=== PATIENT | male | born 1930 | race Caucasian/White ===

== ENCOUNTER 2017-01-28 07:25 | Inpatient (IN) | payer MEDICARE, OTHER ==
[~2017-01-28] VITALS: Ht 182.9 cm; Wt 62.2 kg
[2017-01-28] MEDS ORDERED: NS 500 ML IV ONE ×2 (08:00→11:45)
[2017-01-28] MEDS ORDERED: COLA100C5 PO (08:12)
[2017-01-28] MEDS ORDERED: MIRA33504 PO (08:12)
[2017-01-28] MEDS ORDERED: MIRA3350 PO (08:12)
[2017-01-28] MEDS ORDERED: TRAD5TAB PO (08:12)
[2017-01-28] MEDS ORDERED: BISA10SU4 PR (08:12)
[2017-01-28] MEDS ORDERED: MILKSUS5 PO (08:12)
[2017-01-28] MEDS ORDERED: LIPI20TA PO (08:12)
[2017-01-28] MEDS ORDERED: SYNT75TA PO (08:12)
[2017-01-28] MEDS ORDERED: FLEEENE4 PR (08:12)
[2017-01-28] MEDS ORDERED: LASI40TA PO (08:12)
[2017-01-28] MEDS ORDERED: NITR4TASL SL (08:12)
[2017-01-28] MEDS ORDERED: ZYLO300T4 PO (08:12)
[2017-01-28] MEDS ORDERED: ACID1CAP PO (08:13)
[2017-01-28] MEDS ORDERED: MIRT30TA3 PO (08:13)
[2017-01-28] MEDS ORDERED: CARV3.12 PO (08:13)
[2017-01-28] MEDS ORDERED: K-TA10TA2 PO (08:13)
[2017-01-28] MEDS ORDERED: VITA500T PO (08:13)
[2017-01-28] MEDS ORDERED: BUME1TAB26 PO (08:13)
[2017-01-28] MEDS ORDERED: BUSP10TA PO (08:13)
[2017-01-28] MEDS ORDERED: WARF4TAB51 PO (08:15)
[2017-01-28 08:27] LABS: INR 2.17
[2017-01-28 08:32] LABS: ALBUMIN 2.7 GM/DL (3.2-5.2); ALBUMIN/GLOBULIN RATIO 0.79 (1.00-1.93); ALKALINE PHOSPHATASE 82 U/L (45-117); ALT/SGPT 10 U/L (12-78); ANION GAP 5 MEQ/L (8-16); AST/SGOT 23 U/L (15-37); BILIRUBIN,DIRECT 0.4 MG/DL (0.0-0.2); BILIRUBIN,TOTAL 1.1 MG/DL (0.2-1.0); BLOOD UREA NITROGEN 30 MG/DL (7-18); CALCIUM LEVEL 8.4 MG/DL (8.8-10.2); CARBON DIOXIDE LEVEL 42 MEQ/L (21-32); CHLORIDE LEVEL 94 MEQ/L (98-107); CREATININE FOR GFR 1.06 MG/DL (0.70-1.30); GLOMERULAR FILTRATION RATE > 60.0 (>35); GLUCOSE, FASTING 115 MG/DL (83-110); POTASSIUM SERUM 3.4 MEQ/L (3.5-5.1); SODIUM LEVEL 141 MEQ/L (136-145); TOTAL PROTEIN 6.1 GM/DL (6.4-8.2)
[2017-01-28 08:35] LABS: ADD MORPHOLOGY? YES; BASO % 0.3 % (0.0-1.0); EOS # 0.2 K/mm3 (0.0-0.50); EOS % 2.9 % (0.0-3.0); LARGE UNSTAINED CELL # 0.2 K/mm3 (0.0-0.4); LARGE UNSTAINED CELL % 3.5 % (0.0-4.0); LYMPH # 0.5 K/mm3 (1.5-4.5); LYMPH % 4.4 % (24.0-44.0); MEAN CORPUSCULAR HEMOGLOBIN 30.9 pg (27.0-33.0); MEAN CORPUSCULAR HGB CONC 30.2 g/dl (32.0-36.5); MEAN CORPUSCULAR VOLUME 102.3 fl (80.0-96.0); MONO # 0.5 K/mm3 (0.0-0.8); MONO % 7.4 % (0.0-5.0); NEUTROPHILS # 5.3 K/mm3 (1.8-7.7); NEUTROPHILS % 81.5 % (36.0-66.0); PLATELET COUNT, AUTOMATED 183 k/mm3 (150-450); RED CELL DISTRIBUTION WIDTH 20.5 % (11.5-14.5); WHITE BLOOD COUNT 6.5 K/mm3 (4.0-10.0)
--- NOTE | 2017-01-28 08:49 | REP ---
CT Head without contrast HISTORY: Fall COMPARISON: 09/14/2016 Areas of decreased attenuation are present in the periventricular white matter. This represents small-vessel ischemic disease. There is no intraparenchymal hemorrhage, acute infarct, mass or midline shift. The ventricular system and cortical sulci are dilated consistent with mild volume loss. There is no extra cerebral collection. There is no fracture. The visualized sinuses are clear. IMPRESSION: 1. Small vessel ischemic disease. 2. Mild volume loss. Signed by Sonu Christian MD 01/28/2017 08:41 A
[2017-01-28] MEDS ORDERED: ISOVUE-370 76% 100ML VIAL (Q9967) As Ordered ONE (09:06)
--- NOTE | 2017-01-28 09:08 | REP ---
CT CERVICAL SPINE WITHOUT CONTRAST: HISTORY: Fall. There is no acute fracture. Disc bulges are present at the C2-3 through C4-5 levels. Disc bulges with associated osteophyte formation are present at the C5-6 and C6-7 levels. There is minimal narrowing of the spinal canal. Uncinate process and/or facet hypertrophy are present at the C2-3 through C7-T1 levels. These findings produce minimal to severe narrowing of the neural foramina. The C4-5 through C7-T1 intervertebral discs are decreased in height consistent with disc degeneration. There are 4 mm of anterior subluxation of C2 on 3 and 2 mm of anterior subluxation of C3 on 4 through C5 on 6. IMPRESSION: 1. There is no acute fracture. 2. There is cervical spondylosis at the C2-3 through C7-T1 levels. Signed by Sonu Christian MD 01/28/2017 09:26 A
--- NOTE | 2017-01-28 09:10 | ECGEPIP ---
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
[2017-01-28] MEDS ORDERED: TETANUS/DIPHTHERIA TOX ADSORB ADULT 0.5ML SYR/VIAL (90714) IM ONE (09:15)
--- NOTE | 2017-01-28 09:16 | REP ---
Portable chest x-ray: Single view. History: Trauma. Comparison study: January 23, 2017. Findings: The patient is status post median sternotomy and aortic valve replacement. A multi lead pacemaker is seen in the right heart via the left side. There is moderate to marked cardiomegaly unchanged. Pulmonary vascular markings are congested and indistinct. Interstitial markings are diffusely prominent suggesting diffuse interstitial edema and/or fibrosis. A similar pattern was observed previously. No evidence of pneumothorax seen. No acute skeletal fracture is observed. Impression: Moderate to marked cardiomegaly with pacemaker and aortic valve replacement. Vascular congestion and interstitial edema versus fibrosis pattern again noted. Signed by Trevon Cannon MD 01/28/2017 03:18 P
[2017-01-28 09:19] LABS: POIKILOCYTOSIS 1+
--- NOTE | 2017-01-28 10:12 | REP ---
CT ABDOMEN AND PELVIS WITH IV CONTRAST: TECHNIQUE: Axial contrast enhanced images from the lung bases to the pubic symphysis using 100 mL Isovue 370 intravenous contrast material with multiplanar reformations. Comparison CT [facility] 01/19/2017. In the visualized lung bases there is again an increase in interstitial markings with moderate bilateral pleural effusions. These findings are unchanged since the prior CT exam. There is a large hiatal hernia. Liver demonstrates no evidence of a mass. Spleen is unremarkable. Adrenal glands demonstrate nodular thickening which has remained stable since the prior CT of 08/27/2013. The pancreas is unremarkable. There is a cyst in each kidney. There is no hydronephrosis. There are arteriosclerotic calcifications of the abdominal aorta without aneurysm. I see no adenopathy. A few calcified mesenteric lymph nodes are seen in the right abdomen. No free air is seen. There is a tiny amount of perihepatic and perisplenic fluid and also a tiny amount of free fluid is seen in the pelvis. No bowel wall thickening is seen. There is scattered colonic diverticulosis without evidence of acute diverticulitis. There is a small umbilical hernia. This does contain a nonobstructed bowel loop. Acute intramuscular hematoma is seen in the right rectus muscle measuring 9.6 x 4.5 x 7.3 cm. Urinary bladder appears unremarkable. There are degenerative changes of the spine. IMPRESSION: Acute intramuscular hematoma right rectus muscle as discussed above. There are moderate bilateral pleural effusions with adjacent increased interstitial markings appearing similar to prior study at [facility] 01/19/2017. There is a tiny amount of free fluid in the abdomen and pelvis. No other acute finding. Signed by Segun Henao MD 01/28/2017 04:40 P
[2017-01-28] MEDS ORDERED: LIDOCAINE W/EPINEPHRINE 1% 20ML VIAL SC ONE (11:45)
[2017-01-28] MEDS ORDERED: PHYTONADIONE 10MG/ML INJECTION (J3430) SC ONE (15:45)
[2017-01-28] MEDS ORDERED: ENSULIQ9 PO (16:23)
[2017-01-28] MEDS ORDERED: MILKSUS PO (16:23)
[2017-01-28] MEDS ORDERED: POTA20TA PO (16:23)
[2017-01-28] MEDS ORDERED: NS 1,000 ML IV SCH (19:42)
[2017-01-28] MEDS ORDERED: GLUCAGON FOR INJ 1 MG VIAL (J1610) SC PRN (19:45)
[2017-01-28] MEDS ORDERED: ONDANSETRON 4MG/2ML VIAL (J2405) IV PRN (19:45)
[2017-01-28] MEDS ORDERED: DEXTROSE 50% 50 ML SYRINGE IV PRN (19:45)
[2017-01-28] MEDS ORDERED: GLUCOSE 4 GM CHEW TABLET PO PRN (19:45)
[2017-01-28] MEDS ORDERED: POTASSIUM CHLORIDE 10 MEQ SR TABLET PO ONE (19:45)
[2017-01-28] MEDS ORDERED: BISACODYL 10 MG SUPP PR PRN (19:45)
[2017-01-28] MEDS ORDERED: ONDANSETRON 4 MG TAB (S0181) PO PRN (19:45)
[2017-01-28] MEDS ORDERED: MOM 30ML SUSPENSION UDC PO PRN (19:45)
--- NOTE | 2017-01-28 20:27 | CR ---
DATE OF CONSULTATION: 01/28/2017 REASON FOR CONSULTATION: Scalp bleeding and abdominal hematoma. HISTORY OF PRESENT ILLNESS: The patient is an 86-year-old male who fell off his bed and caused trauma to his scalp and his abdomen. Is here for increasing hematoma and active bleeding from a scalp laceration. Also had a skin laceration on his arm/abrasion that was treated here by the emergency room (ER) physicians. The patient has had some continued bleeding from his scalp laceration, and I was asked to see him for additional recommendations/treatment for this. The patient did not have any loss of consciousness at the scene. Does not complain of any shortness of breath. The patient is status post coronary artery bypass grafting, status post automatic implantable cardioverter-defibrillator (AICD) implantation, history of valve replacement, history of cardiac ablation, history of tonsillectomy, history of cardiac surgery, history of skin cancer, history of congestive heart failure, history of pacemaker placement, history of heart attack, history of hypercholesterolemia, history of hypertension, history of atrial fibrillation, history of chronic obstructive pulmonary disease (COPD)/pulmonary embolism, history of gastroesophageal (GE) reflux, history of diabetes mellitus, history of osteoarthritis, history of prostate cancer. NEW MEDICATIONS: Include the following: Bisacodyl suppository for constipation, Fleet's enema as needed, Colace, nitroglycerin, allopurinol, Tradjenta, Lipitor, Lasix, MiraLax, Synthroid, buspirone. Acidophilus, mirtazapine, carvedilol, vitamin C, Bumex, Coumadin, milk of magnesia, potassium chloride, and Ensure liquids. PHYSICAL EXAMINATION: Reveals a frail-appearing 86-year-old who looks stated age. HEENT: Reveals a laceration on his right scalp with some of the skin avulsed, and there is some active bleeding from a medial edge/frontal edge of this. Otherwise, no other lacerations are appreciated on his scalp. LUNGS: Clear anteriorly with few crackles posteriorly but diminished at the bases bilaterally, right more than left. HEART: Reveals multiple irregular beats. ABDOMEN: Softly distended. He has some tenderness at the area of the rectus hematoma appreciated on the CT scan, and he has hematoma/ecchymosis all across his abdominal wall. EXTREMITIES: Warm, well perfused. He has a bandage over his right arm abrasion/laceration. IMPRESSION AND PLAN: 1. Scalp laceration. This one I have put additional interrupted nylon sutures to control the bleeding, which controlled it quite well. Unfortunately, this does not look like a laceration/abrasion that will heal very well. There is a great deal of skin missing, and I would not be surprised if after taking out his sutures if we have some difficulties with healing and will require some healing by secondary intention, dressing changes, etc. At this point will keep antibiotic ointment on it and a dry sterile gauze and will see how he does overnight and into the next day. He has some ecchymosis along his face that I anticipate will resolve as his hematomas resolve elsewhere. 2. Anticoagulation. I would recommend reversal of his anticoagulation given this rectus muscle hematoma as well as this laceration on his scalp. Hopefully, restarting this will occur in the next 24-48 hours. 3. Rectus muscle hematoma. Seems well delineated on the CT scan and on his physical exam; however, he has ecchymosis all across his abdominal wall. Do not feel that he has active ongoing bleeding at this time. I would anticipate that he be a lot more uncomfortable/tender in this area and does not seem to be that way at this point. Thus, following serial hematocrits is reasonable per medicine, and reversing his anticoagulation at this time should most likely resolve his ongoing bleeding issues. Otherwise he has some pleural effusions appreciated on his CT scan with his history of congestive heart failure, cardiac issues. I would think that these would be more likely not acute issues, i.e., not a hemothorax given he has nontender chest wall and no acute shortness of breath issues. Will continue to follow this patient with you.
[2017-01-28] MEDS: FUROSEMIDE 40 MG TAB PO SCH (20:28)
[2017-01-28] MEDS: ACETAMINOPHEN TAB 650MG DOSE (2X325MG) PO PRN (20:29)
--- NOTE | 2017-01-28 20:29 | HPEPDOC ---
Medical History and Physical Date of Admission Jan 28, 2017 at 19:42 History and Physical HISTORY AND PHYSICAL Date of admission: 01/28/2017 PCP: Dr. Dong Chief complaint: Fell out of bed and started bleeding HPI: 86-year-old male with coronary artery disease and history of TX status post CABG, A. fib status post ablation, status post placement of AICD, hypertension, hyperlipidemia, chronic systolic CHF on continuous home O2, COPD, history of PE, GERD, history of prostate cancer status post radiation now in remission, history of arthritis, history of diabetes mellitus type 2, history of hypothyroidism, history of aortic valve replacement who [facility] He resides at [facility], and states that when he got out of bed this morning, he literally got out on the side of the bed that he does not usually get out. He states that he was confused when he used the other side of the bed, and consequently fell and hit his head. He denies any chest pain, dizziness, shortness of breath, or other symptoms prior to this happening. He also denies any loss of consciousness, and states that he remembers everything. He notes that he was unable to reach his call button, so instead he called out for the staff. In the emergency department , he was noticed to have a right for head laceration, which was closed by Dr. Pineda, and he also was noted to have an intramuscular hematoma in the right rectus. The patient endorses that he falls quite frequently, and his last one was approximately one month ago. He states that he never has any sort of symptoms prior to his falls. Past medical history: coronary artery disease and history of TX status post CABG , A. fib status post ablation, status post placement of AICD, hypertension, hyperlipidemia, chronic systolic CHF on continuous home O2, COPD, history of PE , GERD, history of prostate cancer status post radiation now in remission, arthritis, diabetes mellitus type 2, hypothyroidism, history of aortic valve replacement Past surgical history: CABG, tonsillectomy, appendectomy, cataract surgery, cardiac ablation, skin cancer excision, aortic valve replacement, AICD implantation Family history: Noncontributory Social history: The patient resides at [facility]. He is . He quit smoking cigarettes in 1985. He drinks approximately one sixpack per week in the summer, but states that in the winter, he does not drink at all. He denies any drug use. Allergies: Aspirin Review of systems: General: Negative for fever, positive for chills Eyes: Negative for vision changes and ocular discharge ENT: Negative for sore throat and nose bleed Cardiovascular: Negative for chest pain and palpitations Respiratory: Negative for cough and shortness of breath GI: Negative for nausea, vomiting. Positive for intermittent diarrhea and constipation Musculoskeletal: Negative for neck and back pain Skin: Positive for for head laceration, as well as bruising over his right eye and abdomen and scrotum Neuro: Negative for headache, dizziness, numbness, tingling Psych: Negative for depression and suicidal ideation Endocrine: Negative for polyuria : Negative for dysuria Heme: Positive for bleeding from the laceration on his head, and bruising over his right eye and abdomen Home meds: See below Physical exam: Vital signs: Vital Sign - Last 24 Hours 01/28/17 01/28/17 01/28/17 01/28/17 07:27 07:40 08:10 08:25 Temp 97.0 Pulse 61 64 60 Resp 16 B/P (MAP) 115/57 (76) 115/57 (76) Pulse Ox 97 97 100 O2 Delivery Nasal Cannula O2 Flow Rate 2.0 01/28/17 01/28/17 01/28/17 01/28/17 08:40 08:41 08:55 08:56 Pulse 64 66 B/P (MAP) 128/60 (82) 133/64 (87) Pulse Ox 93 97 01/28/17 01/28/17 01/28/17 01/28/17 09:10 09:11 09:25 09:26 Pulse 62 66 B/P (MAP) 118/56 (76) 112/63 (79) Pulse Ox 94 96 01/28/17 01/28/17 01/28/17 01/28/17 09:40 09:41 09:55 09:56 Pulse 68 66 B/P (MAP) 127/61 (83) 110/82 (91) Pulse Ox 97 82 01/28/17 01/28/17 01/28/17 01/28/17 10:10 10:11 10:25 10:26 Pulse 62 66 B/P (MAP) 124/85 (98) 144/58 (86) Pulse Ox 80 98 8/01/28/17 01/28/17 01/28/17 10:40 10:41 10:45 10:55 Pulse 64 68 B/P (MAP) 137/64 (88) Pulse Ox 100 100 01/28/17 01/28/17 01/28/17 01/28/17 10:56 11:11 11:26 11:41 Pulse 66 68 64 B/P (MAP) 142/64 (90) 132/63 (86) 105/57 (73) 114/53 (73) Pulse Ox 99 99 100 01/28/17 01/28/17 01/28/17 01/28/17 11:56 12:11 12:26 12:41 Pulse 66 64 68 64 B/P (MAP) 152/67 (95) 112/54 (73) 137/62 (87) 140/63 (88) Pulse Ox 100 96 98 100 01/28/17 01/28/17 01/28/17 01/28/17 12:56 13:11 13:26 13:41 Pulse 66 68 64 64 B/P (MAP) 110/60 (77) 129/61 (83) 118/61 (80) 113/57 (75) Pulse Ox 100 100 100 99 01/28/17 01/28/17 01/28/17 01/28/17 13:56 14:11 14:26 14:41 Pulse 66 62 70 66 B/P (MAP) 120/62 (81) 124/60 (81) 111/55 (73) 123/58 (79) Pulse Ox 99 100 100 99 01/28/17 01/28/17 01/28/17 01/28/17 14:56 15:11 15:26 15:41 Pulse 68 68 70 68 B/P (MAP) 132/66 (88) 107/50 (69) 112/52 (72) 90/54 (66) Pulse Ox 93 99 96 96 01/28/17 01/28/17 01/28/17 01/28/17 15:56 16:11 16:26 16:41 Pulse 66 68 68 62 B/P (MAP) 85/47 (60) 101/52 (68) 115/59 (77) Pulse Ox 92 75 97 100 01/28/17 01/28/17 01/28/17 01/28/17 16:56 17:11 17:26 17:41 Pulse 64 60 62 62 B/P (MAP) 118/56 (76) 146/63 (90) 116/58 (77) 103/53 (70) Pulse Ox 93 99 94 100 01/28/17 01/28/17 01/28/17 01/28/17 17:56 17:59 18:14 18:26 Pulse 68 64 B/P (MAP) 113/56 (75) 123/56 (78) 112/55 (74) Pulse Ox 100 95 01/28/17 01/28/17 01/28/17 01/28/17 18:29 18:41 18:44 18:46 Pulse 62 68 B/P (MAP) 108/58 (75) 112/55 (74) Pulse Ox 93 92 01/28/17 01/28/17 01/28/17 01/28/17 18:56 18:59 19:01 19:11 Pulse 64 B/P (MAP) 137/64 (88) 97/63 (74) 138/62 (87) Pulse Ox 100 01/28/17 01/28/17 01/28/17 01/28/17 19:14 19:26 19:29 19:41 Pulse 64 52 B/P (MAP) 129/60 (83) 118/70 (86) Pulse Ox 100 01/28/17 01/28/17 01/28/17 01/28/17 19:44 19:49 19:56 19:59 Pulse 60 62 B/P (MAP) 110/55 (73) 120/59 (79) Pulse Ox 100 100 01/28/17 01/28/17 01/28/17 20:07 20:11 20:14 Pulse 64 B/P (MAP) 92/51 (65) 99/58 (72) Pulse Ox 100 Gen.: awake, alert, no acute distress Eyes: Extraocular movements intact, normal sclera ENT: Moist mucous membranes Head: Right forehead laceration covered in bandage with oozing dripping down right cheek; large bruise over right eye Cardiovascular: RRR Lungs: clear to auscultation bilaterally, no rales, rhonchi, or wheeze Abdomen: Soft, NT/ND, normal BS; bruising over lower abd and scrotum Musculoskeletal: normal range of motion Extremities: No peripheral edema Neuro: alert and oriented 3, normal speech, no focal deficits Psych: Normal mood with congruent affect Labs and radiology: See below Potassium 3.4 Hemoglobin 8.6 INR 2.17 EKG shows a paced rhythm CT of the abdomen and pelvis shows an intramuscular hematoma in the right rectus CT head and CT of the C-spine have no acute findings Chest x-ray shows cardiomegaly and concern for congestion and possible edema Assessment and plan: 86-year-old male with coronary artery disease and history of TX status post CABG , A. fib status post ablation, status post placement of AICD, hypertension, hyperlipidemia, chronic systolic CHF on continuous home O2, COPD, history of PE , GERD, history of prostate cancer status post radiation now in remission, history of arthritis, history of diabetes mellitus type 2, history of hypothyroidism, history of aortic valve replacement who presented to the emergency department after falling out of bed, and is admitted with a head laceration and rectus hematoma. 1. Head laceration: This has been closed by Dr. Pineda. We appreciate his help with managing this. 2. Rectus hematoma: Management as per Dr. Pineda 3. Acute blood loss anemia: The patient has had stable blood pressures, and we are unsure what his previous hemoglobin was, however hemoglobin at [place] one week ago was 10, and upon arrival here was 8.6. The patient was on Coumadin with an INR of 2.17. In the ER, he was given a dose of vitamin K, and started on a blood transfusion of 2 units PRBCs. We will also plan to give him a pheresis of FFP, especially as he continues to ooze from his wound. We will monitor his H&H closely, and transfuse as necessary. 4. Chronic anticoagulation: At this time, it is unclear which indication is being used for the patient's anticoagulation. He does have a variety of things that could potentially warrant it. He endorses a history of a pulmonary embolism , but he states this was many years ago. He also has a history of A. fib, and additionally he has had his aortic valve replaced. He is unsure what type of valve he has, and the records that I received from his jail do not specify this. We will check an echo to evaluate if this is a mechanical or bioprosthetic valve. In the meantime, given the patient's head injury and hematoma in the rectus muscle, his anticoagulation has been reversed. Hopefully after determining what sort of valve he has, we can better form a plan going forward for his anticoagulation. I have discussed this case with Dr. Martin, and he agrees that in the setting of the patient still having active bleeding (the patient is still oozing from his head lack) we cannot have him on anticoagulation at this time. However, Dr. Martin suggests that if the patient has stopped bleeding in the morning, we could consider doing IV heparin until we can get the results of the echo to help determine what sort of valve he has. 5. Fall: It is difficult to assess if this was mechanical or not. The patient seems to deny any prior symptoms or aura. He did not lose consciousness. We will be monitoring him on telemetry, and a CT of the head is unremarkable. Additionally, we will be getting an echo, as we do not know what type of valve he has, and we'll continue to trend his troponins. We will also check a CK to evaluate if he has any component of rhabdomyolysis, and we'll start him on very gentle IV fluids given his history of CHF. 6. Hypokalemia: Replacing. 7. Coronary artery disease and history of TX status post CABG, hyperlipidemia: Continue home statin, beta kelly. The patient has a history of allergy to aspirin, which is why he is not on aspirin. 8. A. fib status post ablation, status post placement of AICD: The patient is currently paced and rate controlled. We'll continue him on the beta kelly. We are holding his Coumadin in light of his bleeding. 9. Hypertension: The patient's blood pressure has been quite stable despite his bleeding. We will continue his Coreg. 10. Chronic systolic CHF on continuous home O2 and the patient is currently on his home oxygen. Given that his blood pressure has remained stable despite his bleeding, and given that a chest x-ray shows concern for congestion and edema, we will plan to restart the patient on his home oral Lasix and Bumex in the morning. If his blood pressure should drop overnight, we can reassess that decision in the morning time. At this time, the patient is breathing comfortably , and I suspect that the edema we are seeing on the chest x-ray may be chronic in nature. 11. Diabetes mellitus type 2: Currently holding home Tradjenta. Sliding scale insulin while in-house. 12. Hypothyroidism: Continue home Synthroid. 13. History of aortic valve replacement: Please see above, chronic anticoagulation. DVT prophylaxis: SCDs Dispo: admit as an inpatient to the service of Dr. Feliciano CODE STATUS: DNR/DNI as per the MOLST form and confirmed with the patient Of note, at the patient's request I called and spoke to his daughter Bethanie Humphrey, and answered all of her questions regarding her father's condition. Vital Signs Vital Signs Date Time Temp Pulse Resp B/P (MAP) Pulse Ox O2 Delivery O2 Flow Rate FiO2 01/28/17 20:14 64 100 01/28/17 20:11 99/58 (72) 01/28/17 07:27 97.0 16 Nasal Cannula 2.0 Laboratory Data Labs 24H Laboratory Tests 2 01/28/17 07:55: Lactic Acid Level 1.1 01/28/17 07:56: White Blood Count 6.5, Red Blood Count 2.78L, Hemoglobin 8.6L, Hematocrit 28.4L , Mean Corpuscular Volume 102.3H, Mean Corpuscular Hemoglobin 30.9, Mean Corpuscular Hemoglobin Concent 30.2L, Red Cell Distribution Width 20.5H, Platelet Count 183, Neutrophils (%) (Auto) 81.5H, Lymphocytes (%) (Auto) 4.4L, Monocytes (%) (Auto) 7.4H, Eosinophils (%) (Auto) 2.9, Basophils (%) (Auto) 0.3 , Neutrophils # (Auto) 5.3, Lymphocytes # (Auto) 0.5L, Monocytes # (Auto) 0.5, Eosinophils # (Auto) 0.2, Basophils # (Auto) 0.0, Large Unclassified Cells % 3.5 , Large Unclassified Cells # 0.2, Platelet Estimate NORMAL, Poikilocytosis 1+, Macrocytosis 2+, Prothrombin Time 25.0H, Prothromb Time International Ratio 2.17 , Activated Partial Thromboplast Time 64.2H, Anion Gap 5L, Glomerular Filtration Rate > 60.0, Calcium Level 8.4L, Aspartate Amino Transf (AST/SGOT) 23 , Alanine Aminotransferase (ALT/SGPT) 10L, Alkaline Phosphatase 82, Total Bilirubin 1.1H, Direct Bilirubin 0.4H, Total Protein 6.1L, Albumin 2.7L, Albumin /Globulin Ratio 0.79L, Lipase 712H CBC/BMP Laboratory Tests 01/28/17 07:56 Red Blood Count 2.78 L, Mean Corpuscular Volume 102.3 H, Mean Corpuscular Hemoglobin 30.9, Mean Corpuscular Hemoglobin Concent 30.2 L, Red Cell Distribution Width 20.5 H, Neutrophils (%) (Auto) 81.5 H, Lymphocytes (%) (Auto ) 4.4 L, Monocytes (%) (Auto) 7.4 H, Eosinophils (%) (Auto) 2.9, Basophils (%) ( Auto) 0.3, Neutrophils # (Auto) 5.3, Lymphocytes # (Auto) 0.5 L, Monocytes # ( Auto) 0.5, Eosinophils # (Auto) 0.2, Basophils # (Auto) 0.0 Home Medications Scheduled (Acidophilus) 1 Cap Cap, 2 CAP PO DAILY (Bumex) 0.5 Mg Tab, 0.5 MG PO DAILY (Ensure Plus) 1 Liq Liq, 1 LIQ PO BID Allopurinol (Zyloprim) 300 Mg Tab, 300 MG PO DAILY Ascorbic Acid (Vitamin C) 500 Mg Tab, 500 MG PO BID Atorvastatin Calcium (Lipitor) 20 Mg Tab, 20 MG PO QHS Buspirone HCl (Buspirone HCl) 10 Mg Tab, 20 MG PO TID Carvedilol (Carvedilol) 3.125 Mg Tab, 3.125 MG PO BID Docusate Sodium (Colace) 100 Mg Cap, 100 MG PO DAILY Furosemide (Lasix) 40 Mg Tab, 120 MG PO BID Levothyroxine Sodium (Synthroid) 75 Mcg Tab, 75 MCG PO DAILY Linagliptin Base (Tradjenta) 5 Mg Tab, 5 MG PO DAILY Mirtazapine (Mirtazapine) 30 Mg Tab, 30 MG PO QHS Polyethylene Glycol (Miralax) 1 Pow Pow, 17 GM PO DAILY Potassium Chloride (Klor-Con M20) 20 Meq Tabcr, 20 MEQ PO TID Warfarin Sod (Warfarin Sodium) 2 Mg Tab, 2 MG PO DAILY FOR A 1 TIME DOSE Scheduled PRN Bisacodyl (Bisacodyl) 10 Mg Sup, 10 MG SD DAILY PRN for CONSTIPATION Milk Of Magnesia (Milk of Magnesia) 1,200 Mg/15 Ml [place], 30 ML PO QPM PRN for CONSTIPATION Nitroglycerin (Nitrostat) 0.4 Mg Subl, 0.4 MG SL Q5MP PRN for CHEST PAIN Sodium Phosphate/Biphosphate (Fleet Enema 7-19 gm/118Ml) 1 Peggy Peggy, 1 EA SD DAILY PRN for CONSTIPATION Allergies Coded Allergies: Aspirin (Verified Adverse Reaction, Intermediate, Blood shot eyes/blurry vision, 01/28/17) RK WHITING Jan 28, 2017 20:29
[2017-01-28] MEDS: HumaLOG INSULIN (NovoLOG) PER UNIT SC SCH ×2 (21:00→22:24)
[2017-01-28 21:05] VITALS: BP 122/60
[2017-01-28] MEDS: NS 1,000 ML IV SCH (21:52)
[2017-01-28] MEDS: ASCORBIC ACID 500 MG TAB PO SCH (21:53)
[2017-01-28] MEDS: CARVedilol 3.125 MG TAB PO SCH (21:53)
[2017-01-28] MEDS: MIRTAZAPINE 15 MG TAB PO SCH (21:53)
[2017-01-28] MEDS: ATORVASTATIN 20 MG TAB PO SCH (21:53)
[2017-01-28] MEDS: busPIRone 10 MG TAB PO SCH (21:54)
[2017-01-29] VITALS (10 sets, daily range): BP systolic 108–132; BP diastolic 59–76
[2017-01-29 05:43] LABS: BASO % 0.2 % (0.0-1.0); EOS # 0.1 K/mm3 (0.0-0.50); EOS % 1.7 % (0.0-3.0); LARGE UNSTAINED CELL # 0.2 K/mm3 (0.0-0.4); LARGE UNSTAINED CELL % 2.4 % (0.0-4.0); LYMPH # 0.3 K/mm3 (1.5-4.5); LYMPH % 3.4 % (24.0-44.0); MEAN CORPUSCULAR HEMOGLOBIN 30.9 pg (27.0-33.0); MEAN CORPUSCULAR HGB CONC 31.6 g/dl (32.0-36.5); MEAN CORPUSCULAR VOLUME 97.7 fl (80.0-96.0); MONO # 0.5 K/mm3 (0.0-0.8); MONO % 6.1 % (0.0-5.0); NEUTROPHILS # 6.9 K/mm3 (1.8-7.7); NEUTROPHILS % 86.2 % (36.0-66.0); PLATELET COUNT, AUTOMATED 158 k/mm3 (150-450); RED CELL DISTRIBUTION WIDTH 19.3 % (11.5-14.5)
[2017-01-29 05:44] LABS: INR 1.65
[2017-01-29 06:00] LABS: ANION GAP 6 MEQ/L (8-16); BLOOD UREA NITROGEN 24 MG/DL (7-18); CALCIUM LEVEL 7.9 MG/DL (8.8-10.2); CARBON DIOXIDE LEVEL 37 MEQ/L (21-32); CHLORIDE LEVEL 97 MEQ/L (98-107); CREATININE FOR GFR 1.02 MG/DL (0.70-1.30); GLOMERULAR FILTRATION RATE > 60.0 (>35); GLUCOSE, FASTING 161 MG/DL (83-110); MAGNESIUM LEVEL 2.2 MG/DL (1.8-2.4); SODIUM LEVEL 140 MEQ/L (136-145)
[2017-01-29] MEDS: LEVOTHYROXINE 75MCG TABLET (0.075MG) PO SCH (06:00)
[2017-01-29] MEDS ORDERED: POTASSIUM CHLORIDE 10 MEQ SR TABLET PO ONE (07:00)
[2017-01-29] MEDS: ACETAMINOPHEN TAB 650MG DOSE (2X325MG) PO PRN (07:04)
[2017-01-29] MEDS: DOCUSATE SODIUM 100 MG CAP PO SCH (07:40)
[2017-01-29] MEDS: BUMETANIDE 1 MG TAB PO SCH (07:42)
[2017-01-29] MEDS: ASCORBIC ACID 500 MG TAB PO SCH ×2 (07:42→21:51)
[2017-01-29] MEDS: CARVedilol 3.125 MG TAB PO SCH ×2 (07:42→21:51)
[2017-01-29] MEDS: ALLOPURINOL 300 MG TAB PO SCH (07:42)
[2017-01-29] MEDS: busPIRone 10 MG TAB PO SCH ×3 (07:43→21:51)
[2017-01-29] MEDS: FUROSEMIDE 40 MG TAB PO SCH ×2 (07:43→16:24)
[2017-01-29] MEDS: MIRALAX *UNIT DOSE* 17GM PACKET PO SCH (07:43)
[2017-01-29] MEDS: HumaLOG INSULIN (NovoLOG) PER UNIT SC SCH ×3 (07:44→17:30)
[2017-01-29] MEDS: PERCOCET 5MG/325MG TAB PO PRN ×2 (10:53→16:25)
[2017-01-29] MEDS: NS 1,000 ML IV SCH (12:30)
--- NOTE | 2017-01-29 20:38 | IPN ---
DATE: 01/28/2017 The patient seen and examined at the bedside. Chart has been reviewed. The patient has not had any issues on telemetry. Remains atrial fibrillation, irregularly irregular. Ventricular rate of 52 to 62, asymptomatic. This morning denies any chest pain, palpitations or pressure, tightness, lightheadedness, dizziness or near-syncopal episode. He complains of pain 8 out of 10 on a pain scale due to ecchymotic areas on the right face. No changes in vision, diplopia, or eye pain. Temperature 97.6, pulse 60, respiratory rate 18, blood pressure 127/50, 96% on 2 liters nasal cannula. GENERAL: The patient is awake, alert, oriented times three. Answers questions appropriately. No icterus or jaundice. The patient has significant right forehead laceration with a bandage. Dried blood. Large bruise over the right eye. Multiple ecchymotic areas bilateral upper extremities. Skin laceration, abrasions on the right arm. Right scalp in the medial frontal edge of scalp. The patient has tenderness in the area of the rectus hematoma and across the abdominal wall. Bandage over the right arm abrasion and lacerated area. EXTREMITIES: No cyanosis or clubbing. LABORATORY DATA: White count 80, hemoglobin 9.4, hematocrit 29, platelet count 158. Sodium 140, potassium 3, chloride 97, bicarbonate 37, BUN 24, creatinine 1, glucose 161, INR 1.65. ASSESSMENT AND PLAN: This is an 86-year-old male with history of coronary artery disease (CAD), myocardial infarction (ND), CABG, status post ablation, automatic implantable cardioverter-defibrillator (AICD), hypertension, dyslipidemia, chronic systolic congestive heart failure (CHF), on home oxygen 2 liters at all times, COPD, pulmonary embolism (PE), reflux, prostate CA, post radiation, in remission, type 2 diabetes, hypothyroidism, aortic valve replacement, follows with Dr. Dong at [facility] presents to the emergency room after falling out of bed with significant skin laceration of his right scalp. Resides at [facility] with complaint of fall after he got out the side of the bed with confusion, head trauma and no loss of consciousness. The patient denies prodromal symptoms of chest pain, dizziness or shortness of breath prior to the episode, was admitted for observation. Current issues are as follows: 1. Scalp laceration secondary to mechanical fall and anticoagulation with coumadin. Currently has a bandage. No active bleeding. General surgery has been consulted to evaluate the rectus muscle hematoma with significant ecchymotic area across the abdomen. The patient does not appear to have any retroperitoneal hematoma. His anticoagulation has been held. INR was reversed emergently with current INR of 1.65. 2. Acute blood loss anemia due to anticoagulation with coumadin s/p fall. The patient required fresh frozen plasma transfusion and red blood cell leukocyte reduced transfusion 2 units due to emergent reversal of INR of 2.17 due to active bleeding. The patient hemoglobin and hematocrit is monitored closely and will need to transfuse as necessary. 3. Aortic valve replacement. History of atrial fibrillation with ablation. He has a prior history of pulmonary embolism years ago and history of atrial fibrillation with ablation and aortic valve replacement, unsure of which type. We are awaiting the records from Dr. Dong's office regarding indications for anticoagulation and what type of aortic valve he has had in the past due to active bleeding, acute blood loss. The patient's anticoagulation had to be reversed emergently due to increase in loss of blood. Once the patient is stabilized, will need to start intravenous heparin and monitor the hematoma in the abdomen. 4. Fall. The patient denies any prodromal symptoms. Did not lose any consciousness. CT of the head was unremarkable for intracranial hemorrhage. The patient denies any chest pain or pressure. Telemetry shows atrial fibrillation. Will continue on telemetry for now. Obtain a 2D echo regarding the type of valve that he has as well as prior history of CHF which is undocumented whether this is systolic or diastolic. 5. Low potassium. Supplement with potassium. Check magnesium. 6. History of CAD, myocardial infarction (ND) status post CABG and hyperlipidemia. Continue on statin, beta blockade due to allergy to ASPIRIN. The patient has not been on any aspirin and currently not on Plavix. 7. Atrial fibrillation. Status post ablation and AICD placement. Is likely systolic dysfunction. Coumadin held due to active acute skin laceration with active bleeding and blood loss anemia. 8. Hypertension. Stable. Continue with Coreg. 9. Chronic systolic CHF, status post AICD. The patient denies any feeling of shock with AICD therefore, unlikely to have had non-sustained ventricular tachycardia (V-tach) as the cause of the fall. Continue on telemetry for now. 10. Type 2 diabetes. On sliding scale. Consistent carbohydrate diet. 11. Hypothyroidism. On Synthroid. 12. Aortic valve replacement. Obtain records from Dr. Dong from [facility]. 13. Deep venous thrombosis (DVT) prophylaxis, sequential compression devices (SCDs). [facility]
[2017-01-29] MEDS: ATORVASTATIN 20 MG TAB PO SCH (21:51)
[2017-01-29] MEDS: MIRTAZAPINE 15 MG TAB PO SCH (21:51)
[2017-01-30] VITALS (7 sets, daily range): BP systolic 111–148; BP diastolic 58–89
[2017-01-30] MEDS: ACETAMINOPHEN TAB 650MG DOSE (2X325MG) PO PRN (05:05)
[2017-01-30 05:50] LABS: BASO % 0.3 % (0.0-1.0); EOS # 0.2 K/mm3 (0.0-0.50); LARGE UNSTAINED CELL # 0.2 K/mm3 (0.0-0.4); LARGE UNSTAINED CELL % 3.6 % (0.0-4.0); LYMPH # 0.3 K/mm3 (1.5-4.5); LYMPH % 4.2 % (24.0-44.0); MEAN CORPUSCULAR HEMOGLOBIN 31.4 pg (27.0-33.0); MEAN CORPUSCULAR VOLUME 98.3 fl (80.0-96.0); MONO # 0.5 K/mm3 (0.0-0.8); NEUTROPHILS # 5.4 K/mm3 (1.8-7.7); NEUTROPHILS % 81.9 % (36.0-66.0); PLATELET COUNT, AUTOMATED 142 k/mm3 (150-450); RED CELL DISTRIBUTION WIDTH 19.6 % (11.5-14.5); WHITE BLOOD COUNT 6.5 K/mm3 (4.0-10.0)
[2017-01-30 05:52] LABS: INR 1.34
[2017-01-30] MEDS: LEVOTHYROXINE 75MCG TABLET (0.075MG) PO SCH (06:06)
[2017-01-30 06:13] LABS: BLOOD UREA NITROGEN 26 MG/DL (7-18); CARBON DIOXIDE LEVEL 35 MEQ/L (21-32); CHLORIDE LEVEL 97 MEQ/L (98-107); CREATININE FOR GFR 1.03 MG/DL (0.70-1.30); GLOMERULAR FILTRATION RATE > 60.0 (>35); GLUCOSE, FASTING 110 MG/DL (83-110); MAGNESIUM LEVEL 2.1 MG/DL (1.8-2.4)
[2017-01-30 06:24] LABS: ANION GAP 6 MEQ/L (8-16); SODIUM LEVEL 138 MEQ/L (136-145)
[2017-01-30 06:31] LABS: POTASSIUM SERUM 2.8 MEQ/L (3.5-5.1)
[2017-01-30] MEDS: HumaLOG INSULIN (NovoLOG) PER UNIT SC SCH ×4 (07:38→21:00)
[2017-01-30] MEDS: POTASSIUM CHLORIDE 10 MEQ SR TABLET PO SCH ×3 (07:39→10:09)
[2017-01-30] MEDS: MIRALAX *UNIT DOSE* 17GM PACKET PO SCH (08:27)
[2017-01-30] MEDS: BUMETANIDE 1 MG TAB PO SCH (08:27)
[2017-01-30] MEDS: DOCUSATE SODIUM 100 MG CAP PO SCH (08:28)
[2017-01-30] MEDS: busPIRone 10 MG TAB PO SCH ×3 (08:28→21:25)
[2017-01-30] MEDS: ASCORBIC ACID 500 MG TAB PO SCH ×2 (08:29→21:25)
[2017-01-30] MEDS: ALLOPURINOL 300 MG TAB PO SCH (08:29)
[2017-01-30] MEDS: CARVedilol 3.125 MG TAB PO SCH ×2 (08:29→21:25)
[2017-01-30] MEDS: FUROSEMIDE 40 MG TAB PO SCH ×2 (08:29→16:51)
--- NOTE | 2017-01-30 10:51 | ECHO ---
DATE OF PROCEDURE: 01/29/2017 REFERRING PHYSICIAN: Dr. Ayla Jacob INDICATION: Status post replacement. HEIGHT: 185 cm WEIGHT: 67.2 kg 2D MEASUREMENTS: Left atrium: 4.9 cm Aortic root: 3.4 cm Ventricular septum: 1.30 cm Posterior wall: 1.33 cm Left ventricle diastole: 5.7 cm LVOT: 2.4 cm Inferior vena cava: 2.5 cm DOPPLER MEASUREMENTS: Very mild aortic regurgitation. Mild aortic stenosis. Peak aortic valve velocity: 226 cm/s LVOT VTI: 12.6 cm Very mild mitral regurgitation. Mitral E velocity (CW): 181 cm/s Mean aortic valve gradient: 5 mmHg. Severe tricuspid regurgitation. Estimated right ventricle systolic pressure at least 73 mmHg assuming a right atrial pressure of at least 20 mmHg. Mild pulmonic regurgitation. MITRAL ANNULAR TISSUE DOPPLER: E prime septal: 3.5 cm/s E prime lateral: 7.6 cm/s DESCRIPTION: Underlying rhythm was atrial fibrillation and was mostly ventricular paced. Image quality was fair. No pericardial effusion. This was a 2D, M-mode, color flower Doppler and pulse wave Doppler examination, continuous wave Doppler , and mitral annular tissue Doppler. CONCLUSIONS: 1. Mildly dilated left ventricle with mild mixed eccentric/concentric left ventricle hypertrophy. Paradoxical septal motion. Akinesis of the left ventricle apex. Moderate global LV hypokinesis elsewhere. No LV thrombus. Severe reduction in overall LV systolic function. Left ventricular ejection fraction (LVEF) 25% by visual estimate. 2. Severe elevation of estimated right ventricle systolic pressure (at least 73 mmHg). Dilated right ventricle with moderate reduction in overall RV systolic function. Flattening of the intraventricular septum in both diastole and systole , in keeping with combined volume and pressure overload of the right ventricle. Tricuspid leaflets appeared structurally normal. Severe tricuspid regurgitation. Severe right atrial dilatation. Inferior vena cava plethora. Suggestive of elevated central venous pressure of at least 20 mmHg. 3. Moderate left atrial dilatation. 4. Moderate focal thickening and focal calcific deposits of a 3-cuspid aortic valve. Very mild aortic regurgitation. Mild aortic stenosis. 5. Appearance of status post mitral valve repair with mitral annular filling ring. No mitral stenosis. Very mild mitral regular. 6. Presence of endocardial implantable cardioverter defibrillator (ICD) lead coursing towards the right ventricle apex position. Presence of a coronary sinus LV lead entering the coronary sinus. 7. No pericardial effusion. MTDD
--- NOTE | 2017-01-30 10:56 | IPN ---
DATE: 01/29/2017 The patient overnight has been stable. Specifically he had a rectus muscle hematoma and he had evidence of a scalp hematoma, ecchymosis overnight. This has improved. Both sides have become less tender and no active bleeding is appreciated. Otherwise his abdomen is soft, nondistended, nontender. He has been started on a regular diet. IMPRESSION AND PLAN: For the patient's scalp laceration, we have ordered some dressing changes for him with antibiotic ointment and Adaptic, etc. Unfortunately, I do feel that there has been some skin avulsion in this area. It may heal slowly by secondary intention and he will need his stitches out in probably around 7-10 days. His abdominal wall rectus hematoma seems to be stable at this point and thus I recommend, given the acute bleeding episodes and significant bleeding episodes, that I would still wait at least another 24-48 hours before restarting anticoagulation. He is still has the potential for re-bleeding at this time. Although it is not high, I think the risk of re-bleeding is significant enough that I would avoid if possible. Otherwise, from a surgical standpoint no acute issues ongoing.
--- NOTE | 2017-01-30 10:56 | IPN ---
DATE: 01/30/2017 The patient overall has been afebrile overnight. He states that his areas of bruising are feeling much better today. He has had no fevers or chills. He has a normal white count. His hematocrit has been relatively stable since yesterday afternoon. On his physical exam his scalp hematoma has diffused, but it is actually reabsorbing relatively quickly at this point. His dressing has not been changed and thus I started to take this off, but will need the nurses to soak this off, it is relatively stuck to the stitch line. Then they can start his dressing changes as ordered. His abdominal wall hematoma is much better. His rectus muscle hematoma is also decreased in size, it is surprisingly much better than it was yesterday in rapid improvement. Otherwise it is probably diffused underneath the skin is the other possibility. He has significant ecchymosis all across his abdominal wall. IMPRESSION AND PLAN: 1. Scalp lacerations/hematoma improving. Continue with dressing changes probably take out his stitches in about 10 days. 2. Rectus wall hematoma improved substantially no significant problems at this time. Regular diet is reasonable as tolerated. 3. Anticoagulation. I do feel that he has made significant improvement of his hematomas rectus muscle abnormalities and it is reasonable to restart his anticoagulation in 24 hours, starting it earlier if absolutely necessary is not unreasonable, however, I would recommend starting him on something that this reversible ie a heparin drip that would be easily reversible should that be necessary. After restarting his anticoagulation discharge to home as appropriate when medically stable.
[2017-01-30] MEDS: NS 1,000 ML IV SCH (11:13)
[2017-01-30] MEDS ORDERED: SLF 3 ML SYR IV PRN (13:00)
[2017-01-30] MEDS: SLF 3 ML SYR IV SCH ×2 (13:32→21:26)
--- NOTE | 2017-01-30 21:13 | IPN ---
DATE: 01/30/2017 SUBJECTIVE: Patient seen and examined at the bedside. Chart has been reviewed. This morning, the patient has no new complaints aside from persistent pain on the scalp laceration with headache as well as lower quadrants of the abdomen. No other signs of bleeding. Denies any nausea or vomiting, dizziness or lightheadedness. Telemetry is unremarkable. He remains in atrial fibrillation, ventricular rate of 57 to 70. OBJECTIVE: VITAL SIGNS: Temperature 98.6, pulse 61, respiratory rate 16, blood pressure 127/59, 98% on two liters nasal cannula. GENERAL: The patient is awake, alert, and oriented to person, place and time. Answers questions appropriately. Has multiple ecchymotic areas of scalp laceration on the face, on the right eyelids, on the medial edge of the right scalp, bilateral lower extremities, hematoma, ecchymosis across the abdominal wall. HEENT: Extraocular muscles are intact. LUNGS: Clear to auscultation. No wheezes, rales, or rhonchi. HEART: S1, S2. Irregularly irregular. ABDOMEN: Has significant hematoma across the abdominal wall. Bilateral ecchymotic areas in upper extremities. EXTREMITIES: No cyanosis, clubbing or pitting edema. LABORATORY DATA: 01/30 CBC, metabolic panel, notable for potassium of 2.8. ASSESSMENT AND PLAN: This is an 86-year-old male who follows with Dr. 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 Resides at [facility], complains of fall after he got out the side of the bed with confusion, head trauma and no loss of consciousness. The patient denies prodromal symptoms of chest pain, dizziness or shortness of breath prior to the episode, was admitted for observation. The patient denies any shock received from the defibrillator, currently with the following issues: 1. Scalp laceration. Has a bandage. No active bleeding. General surgery has been consulted to evaluate the rectus muscle hematoma with significant ecchymotic area across the abdomen. The patient does not appear to have a retroperitoneal hematoma on the CT scan. His anticoagulation has been held. INR was reversed emergently with INR of 0.65. 2. Acute blood loss anemia. Required fresh frozen plasma transfusion for emergent reversal of his Coumadin, and red blood cell transfusion two units due to active bleeding. The patient hemoglobin and hematocrit (H and H) are monitored closely and will give as-needed transfusion as necessary. 3. Aortic valve replacement and prior history of atrial fibrillation with ablation. Was on anticoagulation for prior history of pulmonary embolism years ago. Anticoagulation has been held secondary to active bleeding from the fall. Dr. Dong's office has been contacted to obtain records as to why he is on anticoagulation, whether the aortic valve is a mechanical valve, The patient's anticoagulation will be resumed as soon as his hematoma is stabilized. No signs of anymore active bleeding. Will need to use IV heparin and monitor for worsening bleeding before restarting Coumadin. 4. Fall. Denies any prodromal symptoms. Did not lose any consciousness. The patient's defibrillator did not fire. Assumed to be unrelated to any arrhythmia. Continue with telemetry monitoring for [address] of the head was unremarkable for intracranial hemorrhage. The patient denies any chest pain or pressure. Telemetry has atrial fibrillation. Obtain a 2D echo regarding the type of valve and prior history of CHF. 5. Low potassium. Supplement with potassium 40 mEq times three doses. Magnesium appears to be stable. Recheck potassium this evening. 6. History of coronary artery disease (CAD), myocardial infarction (CA). Continue on statin, beta blockade due to ASPIRIN allergy. Currently on Coumadin as outpatient, which has been held secondary to acute bleed, blood loss anemia and significant hematoma from the fall. 7. Atrial fibrillation. Status post ablation. Coumadin held due to active acute skin laceration, active bleeding, blood loss anemia and significant abdominal hematoma. 8. Congestive heart failure (CHF), systolic dysfunction, status post automatic implantable cardioverter defibrillator (AICD). At this time, the patient has had no acute ischemic symptoms. Cardiac markers have been cycled. Continue telemetry monitoring. 10. Type 2 diabetes. On sliding scale. Consistent carbohydrate diet. 11. Hypothyroidism. On Synthroid. 12. Aortic valve replacement. Obtain records from Dr. Dong's office.
[2017-01-30] MEDS: MIRTAZAPINE 15 MG TAB PO SCH (21:25)
[2017-01-30] MEDS: ATORVASTATIN 20 MG TAB PO SCH (21:25)
[2017-01-31] VITALS (7 sets, daily range): BP systolic 104–144; BP diastolic 52–76
[2017-01-31] MEDS: ACETAMINOPHEN TAB 650MG DOSE (2X325MG) PO PRN (04:38)
[2017-01-31] MEDS: LEVOTHYROXINE 75MCG TABLET (0.075MG) PO SCH (05:48)
[2017-01-31] MEDS: SLF 3 ML SYR IV SCH ×3 (06:00→22:00)
[2017-01-31 07:17] LABS: BASO % 0.3 % (0.0-1.0); EOS # 0.2 K/mm3 (0.0-0.50); EOS % 3.5 % (0.0-3.0); LARGE UNSTAINED CELL # 0.2 K/mm3 (0.0-0.4); LARGE UNSTAINED CELL % 2.7 % (0.0-4.0); LYMPH # 0.5 K/mm3 (1.5-4.5); LYMPH % 6.3 % (24.0-44.0); MEAN CORPUSCULAR HEMOGLOBIN 30.9 pg (27.0-33.0); MEAN CORPUSCULAR HGB CONC 31.2 g/dl (32.0-36.5); MEAN CORPUSCULAR VOLUME 98.8 fl (80.0-96.0); MONO # 0.4 K/mm3 (0.0-0.8); MONO % 6.2 % (0.0-5.0); NEUTROPHILS # 4.5 K/mm3 (1.8-7.7); NEUTROPHILS % 81.1 % (36.0-66.0); PLATELET COUNT, AUTOMATED 143 k/mm3 (150-450); RED CELL DISTRIBUTION WIDTH 20.1 % (11.5-14.5); WHITE BLOOD COUNT 5.6 K/mm3 (4.0-10.0)
[2017-01-31] MEDS: HumaLOG INSULIN (NovoLOG) PER UNIT SC SCH ×4 (07:30→20:36)
[2017-01-31 07:32] LABS: INR 1.27
[2017-01-31] MEDS: MIRALAX *UNIT DOSE* 17GM PACKET PO SCH (09:00)
[2017-01-31] MEDS ORDERED: POTASSIUM CHLORIDE 10 MEQ SR TABLET PO SCH (09:00)
[2017-01-31] MEDS: ALLOPURINOL 300 MG TAB PO SCH (09:16)
[2017-01-31] MEDS: DOCUSATE SODIUM 100 MG CAP PO SCH (09:16)
[2017-01-31] MEDS: ASCORBIC ACID 500 MG TAB PO SCH ×2 (09:17→20:35)
[2017-01-31] MEDS: BUMETANIDE 1 MG TAB PO SCH (09:17)
[2017-01-31] MEDS: CARVedilol 3.125 MG TAB PO SCH ×2 (09:17→20:35)
[2017-01-31] MEDS: FUROSEMIDE 40 MG TAB PO SCH ×2 (09:18→16:49)
[2017-01-31] MEDS: busPIRone 10 MG TAB PO SCH ×3 (09:18→20:35)
[2017-01-31 09:46] LABS: ANION GAP 11 MEQ/L (8-16); BLOOD UREA NITROGEN 27 MG/DL (7-18); CARBON DIOXIDE LEVEL 34 MEQ/L (21-32); CHLORIDE LEVEL 99 MEQ/L (98-107); CREATININE FOR GFR 1.05 MG/DL (0.70-1.30); GLOMERULAR FILTRATION RATE > 60.0 (>35); GLUCOSE, FASTING 104 MG/DL (83-110); MAGNESIUM LEVEL 2.1 MG/DL (1.8-2.4); POTASSIUM SERUM 3.1 MEQ/L (3.5-5.1); SODIUM LEVEL 144 MEQ/L (136-145)
[2017-01-31] MEDS ORDERED: POTASSIUM CHLORIDE 10 MEQ SR TABLET PO ONE (10:45)
--- NOTE | 2017-01-31 11:30 | REP ---
Chest one-view HISTORY: Shortness of breath Comparison: 01/28/2017 A diffuse increase in interstitial markings is present in the lungs. There is blunting of the left costophrenic angle due to a small pleural effusion. The cardiac silhouette is enlarged. The pulmonary vasculature is prominent. A cardiac pacemaker is present. Impression: Findings consistent with interstitial edema unchanged compared to the previous study. Signed by Sonu Christian MD 01/31/2017 11:21 A
[2017-01-31] MEDS: MIRTAZAPINE 15 MG TAB PO SCH (20:35)
[2017-01-31] MEDS: ATORVASTATIN 20 MG TAB PO SCH (20:35)
--- NOTE | 2017-01-31 21:08 | IPN ---
DATE: 01/31/2017 Patient seen and examined at the bedside. Chart has been reviewed. This morning patient's hemoglobin continues to drop from admission of 10 to current 8.5. He, however, denies any worsening of symptoms. VITAL SIGNS: Temperature 98.8, pulse 58, respiratory rate 18, blood pressure 108/60, 99% on 2 liters nasal cannula. GENERAL: Patient has multiple ecchymotic areas on the face, particularly right forehead and covering the right eye. Extraocular muscles are intact. Vision is diminished but chronic. Answers questions appropriately. Awake and alert to person, place, and time. Patient has bilateral lower quadrant hematoma/ ecchymosis across abdominal wall. LUNGS: Clear to auscultation. No wheezes, rales, or rhonchi. HEART: S1, S2, irregularly irregular. ABDOMEN: Soft, slightly tender across the abdomen where the hematoma is located. EXTREMITIES: No cyanosis, clubbing, or pitting edema. Laboratory data and imaging studies have been reviewed. 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 Complained of fall after got out of the bed with confusion. Head trauma and no loss of consciousness. Patient denies prodromal symptoms of chest pain, dizziness, or shortness of breath prior to episode. Was admitted for observation. Denies any shock received from the defibrillator. Currently with following issues. 1. Scalp laceration. Has a bandage. No active signs of bleeding. General surgery was recommending low-dose heparin for resumption of anticoagulation; however, I am a little bit concerns about the drop in hemoglobin from admission and status post blood transfusion of hemoglobin of 10 to current hemoglobin of 8. His INR was reversed emergently to INR of 0.65. 2. Acute blood loss anemia secondary to fall. Required fresh frozen plasma (FFP ) transfusion for emergent reversal of his Coumadin. Red blood cell (RBC) transfusion 2 units due to active bleeding. Hemoglobin and hematocrit have been monitored. Appear to be decreasing. Will recheck hemoglobin and hematocrit, and if persistently low, will re-image the abdomen. Rule out retroperitoneal bleeding. Transfuse as needed and hold off on anticoagulation. 3. Mitral valve repair confirmed on recent Echo . Has a history of atrial fibrillation with ablation. Bioprosthetic valve. According to Dr. Dong's records was on anticoagulation for pulmonary embolism (PE) for years. We are holding his anticoagulation due to a decrease in his hemoglobin and hematocrit. Will recheck. Transfuse as needed, and if stable will restart intravenous (IV) heparin. 4. Fall. Denies prodromal symptoms. No loss of consciousness. Defibrillator did not fire. Seems to be unrelated to arrhythmia. Patient had had unremarkable telemetry aside from chronic atrial fibrillation. CT of the head was unremarkable. Patient denies chest pain or pressure. Patient has bioprosthetic valve. 5. Low potassium. Supplemented. 6. History of CAD/MT, on statin, beta blockade. Coumadin held due to acute blood loss anemia and significant hematoma. 7. Atrial fibrillation, rate controlled, status post ablation. Coumadin has been held due to active skin laceration, bleeding, blood loss anemia, and abdominal wall hematoma. 8. CHF, systolic dysfunction. Discontinued IV fluids yesterday and automatic implantable cardioverter-defibrillator (AICD). Cardiac markers unremarkable. 9. Type 2 diabetes, sliding scale, consistent-carbohydrate. 10. Hypothyroidism, on Synthroid. 11. Aortic valve replacement, bioprosthetic. MTDD
[2017-02-01 05:10] VITALS: BP 103/62
[2017-02-01] MEDS: LEVOTHYROXINE 75MCG TABLET (0.075MG) PO SCH (05:40)
[2017-02-01] MEDS: SLF 3 ML SYR IV SCH ×3 (05:45→20:26)
[2017-02-01 06:23] LABS: BASO % 0.2 % (0.0-1.0); EOS # 0.2 K/mm3 (0.0-0.50); LARGE UNSTAINED CELL # 0.1 K/mm3 (0.0-0.4); LARGE UNSTAINED CELL % 2.8 % (0.0-4.0); LYMPH # 0.4 K/mm3 (1.5-4.5); LYMPH % 6.2 % (24.0-44.0); MEAN CORPUSCULAR HEMOGLOBIN 31.5 pg (27.0-33.0); MEAN CORPUSCULAR HGB CONC 31.7 g/dl (32.0-36.5); MEAN CORPUSCULAR VOLUME 99.4 fl (80.0-96.0); MONO # 0.4 K/mm3 (0.0-0.8); NEUTROPHILS % 79.7 % (36.0-66.0); PLATELET COUNT, AUTOMATED 153 k/mm3 (150-450)
[2017-02-01 06:27] LABS: INR 1.17
[2017-02-01] MEDS ORDERED: FUROSEMIDE 20 MG/2 ML VIAL (J1940) IV SCH (06:45)
[2017-02-01 07:00] LABS: ANION GAP 10 MEQ/L (8-16); BLOOD UREA NITROGEN 26 MG/DL (7-18); CALCIUM LEVEL 7.6 MG/DL (8.8-10.2); CARBON DIOXIDE LEVEL 34 MEQ/L (21-32); CHLORIDE LEVEL 99 MEQ/L (98-107); CREATININE FOR GFR 0.96 MG/DL (0.70-1.30); GLOMERULAR FILTRATION RATE > 60.0 (>35); GLUCOSE, FASTING 111 MG/DL (83-110); SODIUM LEVEL 143 MEQ/L (136-145)
[2017-02-01 07:15] LABS: POTASSIUM SERUM 2.8 MEQ/L (3.5-5.1)
--- NOTE | 2017-02-01 08:20 | REPUSA ---
CLINICAL HISTORY: WORSENING ANEMIA, R/O INCREASE IN HEMATOMA TECHNIQUE: Multiple axial, sagittal and coronal CT images were obtained through the abdomen and pelvi s without administration of oral or IV contrast material. COMMENTS: Compared to 01/28/17 study. The liver is of uniform attenuation without mass or defect. There is no intra or extrahepatic biliary ductal dilatation. The spleen is normal. The gallbladder is within normal limits. The pancreas is of normal contour and attenuation characteristics. There is no evidence of adrenal mass. The kidneys are normal in size, shape and configuration. No renal or ureteral calculi are identified. There is no hydroureter or hydronephrosis. Bilateral renal cysts are noted. There is no evidence for appendicitis. Diffuse sigmoid diverticulosis is noted. There is no bowel wal l thickening. No evidence for small or large bowel obstruction. Trace perihepatic ascites is noted. There is no evidence of intrinsic or extrinsic bladder mass. There is no pelvic ascites or lymphadeno sumaya. Stable hematoma of right lower abdominal wall measuring 7 x 3.8 cm. Prostatic radiation seeds are noted. Images of the lung bases show no evidence of pleural or parenchymal mass. There are large bilateral p leural effusions. The heart is enlarged and there are congestive changes. The bony structures are free of lytic or blastic lesions. Multilevel degenerative changes are seen in volving the thoracolumbar spine. Scattered calcifications are seen involving the aorta and major branches compatible with atherosclero sis. IMPRESSION: No significant interval change. Stable hematoma of right lower abdominal wall measuring 7 x 3.8 cm. Trace perihepatic ascites is noted. Large bilateral pleural effusions. CHF.
[2017-02-01] MEDS: FUROSEMIDE 40 MG/4 ML VIAL (J1940) IV SCH ×3 (09:54→20:25)
[2017-02-01] MEDS: busPIRone 10 MG TAB PO SCH ×3 (09:54→20:25)
[2017-02-01] MEDS: ASCORBIC ACID 500 MG TAB PO SCH ×2 (09:54→20:25)
[2017-02-01] MEDS: ALLOPURINOL 300 MG TAB PO SCH (09:54)
[2017-02-01] MEDS: DOCUSATE SODIUM 100 MG CAP PO SCH (09:54)
[2017-02-01] MEDS: POTASSIUM CHLORIDE 10 MEQ SR TABLET PO SCH ×3 (09:55→13:53)
[2017-02-01] MEDS: HumaLOG INSULIN (NovoLOG) PER UNIT SC SCH ×4 (09:55→20:25)
[2017-02-01] MEDS: MIRALAX *UNIT DOSE* 17GM PACKET PO SCH (09:56)
--- NOTE | 2017-02-01 11:39 | IPN ---
DATE: 02/01/2017 Patient seen and examined at the bedside. Chart has been reviewed. Yesterday, patient's hemoglobin and hematocrit was trending downwards to 8.3 with no intervention, went back up to 9.5. He denies any new ecchymotic areas, hematemesis, bright red blood per rectum, melena. No other issues on telemetry aside from the slow atrial fibrillation, ventricular rate of 56. Temperature 98.7, pulse 58, respiratory 16, blood pressure 103/62, 95% on 2 liters nasal cannula. Generally, awake, alert, oriented to person, legally blind. Multiple ecchymotic areas on the face on the right forehead covering the eye. Extraocular muscles intact. Patient is legally blind, answered questions appropriately. Awake, alert, oriented to person, place and time. No respiratory distress, cyanosis or icterus. No jaundice. Bilateral lower quadrant hematoma and retroperitoneal changes on the back across the abdominal wall tracking to the flank. Extremities: No pitting edema. White count 5, hemoglobin 8.6, hematocrit 27.2, platelet count 153. Metabolic panel is pending. Chest x-ray: Interstitial edema unchanged compared to prior study. ASSESSMENT AND PLAN: This is an 86-year-old male who follows with Dr. 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 He denied any prodromal symptoms, chest pain, dizziness, shortness of breath, lightheadedness prior to the episode who was admitted for observation. Denies any shocks received from defibrillator currently with the following issues: 1. Scalp laceration. Has a bandage. No active signs of bleeding. General surgery recommended low-dose heparin for resumption of anticoagulation. Patient's hemoglobin has been unstable. His INR was emergently reversed to an INR of 0.65. 2. Acute blood loss anemia secondary to fall. Required fresh frozen plasma (for emergent reversal of his Coumadin. Red blood cell (RBC) transfusion 2 units due to active bleeding. Hemoglobin and hematocrit have been monitored. Appear to be decreasing. Will recheck hemoglobin and hematocrit, and since this has been low, below 8, rule out worsening retroperitoneal bleeding. Will repeat CT of abdomen and pelvis. Transfuse as needed and hold off on anticoagulation until hemoglobin and hematocrit is stable and transfuse as needed. 3. Mitral valve repair, bioprosthetic according to repeat echo, ejection fraction of 25% with severe tricuspid regurgitation, mild aortic stenosis. Currently off anticoagulation for atrial fibrillation due to active bleeding. Will hold off until hemoglobin and hematocrit is stable. Repeat CT abdomen and pelvis regarding possible expanding retroperitoneal hematoma. 4. CHF, systolic dysfunction. Ejection fraction 25%. Automatic implantable cardioverter-defibrillator (AICD). Cardiac markers unremarkable. Strict input and output and daily weights. 5. Type 2 diabetes, on consistent-carbohydrate. 6. Hypothyroidism, on Synthroid. 7. Mechanical valve repair, bioprosthetic per recent echo read by Dr. Rojo. 8. Atrial fibrillation with slow ventricular rate, appears to be rate controlled, on Coreg 3.125 twice daily. No anticoagulation due to possible ongoing bleed. Repeat CT abdomen with no contrast regarding intraperitoneal bleed. MTDD
[2017-02-01 14:00] VITALS: BP 118/63
[2017-02-01 20:17] LABS: MAGNESIUM LEVEL 1.9 MG/DL (1.8-2.4)
[2017-02-01 20:24] LABS: POTASSIUM SERUM 4.1 MEQ/L (3.5-5.1)
[2017-02-01] MEDS: MIRTAZAPINE 15 MG TAB PO SCH (20:25)
[2017-02-01] MEDS: ATORVASTATIN 20 MG TAB PO SCH (20:25)
[2017-02-01 22:00] VITALS: BP 130/57
[2017-02-02] MEDS: FUROSEMIDE 40 MG/4 ML VIAL (J1940) IV SCH ×4 (02:06→20:00)
[2017-02-02] MEDS: SLF 3 ML SYR IV SCH ×3 (05:46→22:13)
[2017-02-02] MEDS: LEVOTHYROXINE 75MCG TABLET (0.075MG) PO SCH (05:46)
[2017-02-02 06:00] VITALS: BP 123/61
[2017-02-02 07:30] LABS: BASO % 0.3 % (0.0-1.0); EOS # 0.2 K/mm3 (0.0-0.50); EOS % 2.9 % (0.0-3.0); LARGE UNSTAINED CELL # 0.2 K/mm3 (0.0-0.4); LYMPH # 0.6 K/mm3 (1.5-4.5); LYMPH % 5.9 % (24.0-44.0); MEAN CORPUSCULAR HEMOGLOBIN 30.8 pg (27.0-33.0); MEAN CORPUSCULAR HGB CONC 31.5 g/dl (32.0-36.5); MEAN CORPUSCULAR VOLUME 97.6 fl (80.0-96.0); MONO # 0.4 K/mm3 (0.0-0.8); MONO % 7.4 % (0.0-5.0); NEUTROPHILS # 4.6 K/mm3 (1.8-7.7); NEUTROPHILS % 79.4 % (36.0-66.0); PLATELET COUNT, AUTOMATED 148 k/mm3 (150-450); RED CELL DISTRIBUTION WIDTH 20.1 % (11.5-14.5); WHITE BLOOD COUNT 5.7 K/mm3 (4.0-10.0)
[2017-02-02 07:42] LABS: INR 1.22
[2017-02-02 07:50] LABS: ANION GAP 8 MEQ/L (8-16); BLOOD UREA NITROGEN 30 MG/DL (7-18); CALCIUM LEVEL 8.3 MG/DL (8.8-10.2); CARBON DIOXIDE LEVEL 33 MEQ/L (21-32); CHLORIDE LEVEL 100 MEQ/L (98-107); CREATININE FOR GFR 1.02 MG/DL (0.70-1.30); GLOMERULAR FILTRATION RATE > 60.0 (>35); GLUCOSE, FASTING 129 MG/DL (83-110); POTASSIUM SERUM 3.9 MEQ/L (3.5-5.1); SODIUM LEVEL 141 MEQ/L (136-145)
[2017-02-02 07:51] LABS: MAGNESIUM LEVEL 1.9 MG/DL (1.8-2.4)
[2017-02-02] MEDS: MIRALAX *UNIT DOSE* 17GM PACKET PO SCH (08:59)
[2017-02-02] MEDS ORDERED: POTASSIUM CHLORIDE 10 MEQ SR TABLET PO ONE (09:00)
[2017-02-02] MEDS: ASCORBIC ACID 500 MG TAB PO SCH ×2 (09:00→20:26)
[2017-02-02] MEDS: DOCUSATE SODIUM 100 MG CAP PO SCH (09:00)
[2017-02-02] MEDS: busPIRone 10 MG TAB PO SCH ×3 (09:00→20:26)
[2017-02-02] MEDS ORDERED: MAG SULF 1GM/100ML (MAG RUN) 1 GM in APPROPRIATE DILUENT 1 EA IV ONE (09:00)
[2017-02-02] MEDS: ALLOPURINOL 300 MG TAB PO SCH (09:00)
[2017-02-02] MEDS: HumaLOG INSULIN (NovoLOG) PER UNIT SC SCH ×4 (09:04→20:39)
--- NOTE | 2017-02-02 09:40 | REP ---
CHEST X-RAY: Two views. HISTORY: Shortness of breath. COMPARISON STUDY: January 31, 2017. FINDINGS: A multilead pacemaker is again seen in the right heart. The patient is status post aortic valve replacement. Median sternotomy wires are noted. There is evidence of a hiatal hernia behind the heart. Cardiomegaly is again seen. Pulmonary vascular congestion persists. Interstitial markings are somewhat prominent though possibly improved. No new infiltrate seen. There is slight blunting of the posterior pleural angles. IMPRESSION: Cardiomegaly some vascular congestion. Improved interstitial edema pattern. Signed by Trevon Cannon MD 02/02/2017 02:43 P
--- NOTE | 2017-02-02 13:21 | IPN ---
DATE OF SERVICE: 02/02/2017 Patient seen and examined at bedside. This morning, patient denies any chest pain, pressure, tightness, lightheadedness, or dizziness. No worsening of ecchymotic areas. No bright red blood per rectum, melena, black, tarry tools. Temperature 97.9, pulse 68, respiratory 16, blood pressure 123/61, 98% on 2 liters nasal cannula. Generally, patient has multiple ecchymotic areas across the forehead, scalp, with ulceration and stitches. He has extraocular muscles intact. He has right eye ecchymosis upper eyelid and luis signs. Multiple ecchymotic areas across the anterior abdomen and flank, bilateral upper extremities. Awake, alert, oriented, answering questions appropriately. Extraocular muscles are intact. Normocephalic, atraumatic. Unable to assess jugular venous distention. LUNGS: Diminished breath sounds. Fine crackles at the bases. HEART: S1, S2, irregularly irregular. ABDOMEN: Is soft, nontender, nondistended. Positive bilateral lower quadrant hematoma, retroperitoneal hematoma along the flank. EXTREMITIES: No pitting edema. Laboratory data has been reviewed. Imaging studies, microbiology reviewed. ASSESSMENT AND PLAN: 86-year-old male who follows with Dr. Dong, in [place], history of coronary artery disease (CAD), myocardial infarction ([place]), coronary artery bypass graft (CABG), automatic implantable cardioverter-defibrillator (AICD), systolic dysfunction, home oxygen at all times, chronic obstructive pulmonary disease (COPD), pulmonary embolism (PE), reflux, prostate cancer (CA) status post radiation, type 2 diabetes, bioprosthetic valve, presents to the emergency room (ER) after falling at home, complained of fall after got out of bed with confusion, head trauma with no loss of consciousness. He denied any prodromal symptoms, chest pain, pressure, tightness, dizziness, lightheadedness prior to the fall. Was admitted for observation. He also denies shocks received from defibrillator. Currently with following issues: 1. Scalp laceration. Has a bandage. No active signs of bleeding. General surgery recommending low-dose heparin for resumption of anticoagulation. Patient's hemoglobin had been unstable, required more blood transfusion. INR was emergently reversed to INR of 0.65. 2. Acute blood loss anemia secondary to fall. Required fresh frozen plasma (FFP) transfusion for emergent reversal of his Coumadin, red blood cell (RBC) transfusion due to active bleeding. Hemoglobin and hematocrit (H and H) have been monitored. Appear to be decreasing. Will recheck H and H since patient's hemoglobin has been low. Repeat CT abdomen/pelvis done yesterday shows stable hematoma. Large bilateral pleural effusions are noted. Patient has a bioprosthetic valve and, therefore, will hold off on anticoagulation for now until patient is euvolemic. His heparin drip could exacerbate congestive heart failure. 3. Congestive heart failure (CHF). Acute decompensated CHF. Ejection fraction (EF) of 25%. Patient is DO NOT RESUSCITATE/DO NOT INTUBATE. He has severe tricuspid regurgitation, mild , off anticoagulation for atrial fibrillation due to active bleed. Will hold off until H and H is stable. Repeat CT shows no worsening bleeding. Strict intake and output (I and O), daily weights, fluid restriction. Lasix 40 intravenous (IV) every 6 hourly. Cardiac markers are negative. 4. Type 2 diabetes. Consistent carbohydrate diet. 5. Hypothyroidism. On Synthroid. 6. Mitral valve repair bioprosthetic per recent echo ready by Dr. Rojo. No immediate need for anticoagulation. 7. Atrial fibrillation with slow ventricular rate. On Coreg 3.125 twice a day. No anticoagulation due to ongoing acute blood loss anemia.
[2017-02-02 14:00] VITALS: BP 94/55
[2017-02-02 20:00] VITALS: BP 94/55
[2017-02-02 20:24] LABS: ANION GAP 10 MEQ/L (8-16); BLOOD UREA NITROGEN 32 MG/DL (7-18); CALCIUM LEVEL 8.2 MG/DL (8.8-10.2); CARBON DIOXIDE LEVEL 32 MEQ/L (21-32); CHLORIDE LEVEL 98 MEQ/L (98-107); CREATININE FOR GFR 1.08 MG/DL (0.70-1.30); GLOMERULAR FILTRATION RATE > 60.0 (>35); GLUCOSE, FASTING 159 MG/DL (83-110); MAGNESIUM LEVEL 2.1 MG/DL (1.8-2.4); POTASSIUM SERUM 4.2 MEQ/L (3.5-5.1); SODIUM LEVEL 140 MEQ/L (136-145)
[2017-02-02] MEDS: ATORVASTATIN 20 MG TAB PO SCH (20:26)
[2017-02-02] MEDS: MIRTAZAPINE 15 MG TAB PO SCH (20:26)
[2017-02-02 22:00] VITALS: BP 117/57
[2017-02-03 02:00] VITALS: BP 122/45
[2017-02-03] MEDS: FUROSEMIDE 40 MG/4 ML VIAL (J1940) IV SCH ×3 (02:06→15:35)
[2017-02-03] MEDS: SLF 3 ML SYR IV SCH ×3 (05:40→20:13)
[2017-02-03] MEDS: LEVOTHYROXINE 75MCG TABLET (0.075MG) PO SCH (05:41)
[2017-02-03 06:00] VITALS: BP 106/53
[2017-02-03 06:49] LABS: INR 1.38
[2017-02-03 07:00] LABS: BASO % 0.2 % (0.0-1.0); EOS # 0.1 K/mm3 (0.0-0.50); EOS % 1.9 % (0.0-3.0); LARGE UNSTAINED CELL # 0.2 K/mm3 (0.0-0.4); LARGE UNSTAINED CELL % 3.7 % (0.0-4.0); LYMPH # 0.3 K/mm3 (1.5-4.5); LYMPH % 5.3 % (24.0-44.0); MEAN CORPUSCULAR HEMOGLOBIN 31.5 pg (27.0-33.0); MEAN CORPUSCULAR HGB CONC 32.5 g/dl (32.0-36.5); MEAN CORPUSCULAR VOLUME 96.9 fl (80.0-96.0); MONO # 0.4 K/mm3 (0.0-0.8); NEUTROPHILS # 4.5 K/mm3 (1.8-7.7); NEUTROPHILS % 81.9 % (36.0-66.0); PLATELET COUNT, AUTOMATED 151 k/mm3 (150-450); RED CELL DISTRIBUTION WIDTH 19.2 % (11.5-14.5); WHITE BLOOD COUNT 5.4 K/mm3 (4.0-10.0)
[2017-02-03 07:09] LABS: ANION GAP 7 MEQ/L (8-16); BLOOD UREA NITROGEN 32 MG/DL (7-18); CALCIUM LEVEL 8.3 MG/DL (8.8-10.2); CARBON DIOXIDE LEVEL 34 MEQ/L (21-32); CHLORIDE LEVEL 97 MEQ/L (98-107); CREATININE FOR GFR 1.05 MG/DL (0.70-1.30); GLOMERULAR FILTRATION RATE > 60.0 (>35); GLUCOSE, FASTING 125 MG/DL (83-110); MAGNESIUM LEVEL 2.1 MG/DL (1.8-2.4); POTASSIUM SERUM 3.4 MEQ/L (3.5-5.1); SODIUM LEVEL 138 MEQ/L (136-145)
[2017-02-03] MEDS: MIRALAX *UNIT DOSE* 17GM PACKET PO SCH (08:27)
[2017-02-03] MEDS: HumaLOG INSULIN (NovoLOG) PER UNIT SC SCH ×4 (08:31→20:23)
[2017-02-03] MEDS: DOCUSATE SODIUM 100 MG CAP PO SCH (08:31)
[2017-02-03] MEDS: ASCORBIC ACID 500 MG TAB PO SCH ×2 (08:31→20:13)
[2017-02-03] MEDS: busPIRone 10 MG TAB PO SCH ×3 (08:31→20:13)
[2017-02-03] MEDS: ALLOPURINOL 300 MG TAB PO SCH (08:31)
[2017-02-03] MEDS: ESCITALOPRAM OXALATE 10 MG TAB (LEXAPRO) PO SCH (10:34)
--- NOTE | 2017-02-03 12:09 | IPN ---
DATE: 02/03/2017 Mr. Brody is a 86-year-old gentleman seen at bedside. No overnight issues reported. He does have quite a bit of contusions and bruising, as well as abrasions on the face and upper extremities from his previous fall. Denies headache, lightheadedness, dizziness. No blurry vision. Physical therapy (PT) is working with him as well. The patient did inform nursing that he may want to consider comfort measures only; however, at bedside on my discussion with him today, he does feel somewhat down, depressed, blue, but he denies any suicidal ideation. No audiovisual hallucinations, but did clearly feel that he feels depressed with all of his medical issues. He was agreeable to try a mild selective serotonin reuptake inhibitors (SSRIs), such as Lexapro. I would like to try him on this for a few days and reevaluate him. At any rate, he does continue to diurese well with the IV Lasix. OBJECTIVE: Temperature is 98.6, pulse 64, respiratory rate 17, blood pressure 121/51, SPO2 is 95% on 2 liters. HEENT: Head is atraumatic, normocephalic. Eyes: Pupils equal, round, and reactive to light and accommodation. He does have some bruising, ecchymosis over the right cheek and jaw line. No open sores. Throat is clear. Extraocular movements intact. Cranial nerves II-XII are intact. LUNGS: Clear to auscultation. HEART: Regular rhythm. ABDOMEN: Soft. EXTREMITIES: No edema. No calf tenderness of the lower extremities; however, he does have still some bruising and abrasions on the upper extremities, as noted previously. LABORATORY DATA White count is 5.4, hemoglobin 10.4, platelets are 151. Sodium 138, potassium 3.4, chloride 97, bicarbonate 34, anion gap 7, BUN 32, creatinine 1.05, glucose 125 ASSESSMENT AND PLAN: 1. Scalp laceration. Stable 2. Acute blood loss anemia secondary to fall. Required fresh frozen plasma (FFP ) transfusion for emergent reversal of his Coumadin, red blood cell (RBC) transfusion due to active bleeding. Hemoglobin and hematocrit (H and H) have been stable.. Repeat CT abdomen/pelvis done yesterday shows stable hematoma. Large bilateral pleural effusions are noted. Patient has a bioprosthetic valve and, therefore, will hold off on anticoagulation for now until patient is euvolemic. His heparin drip could exacerbate congestive heart failure. Additionally he is refusing further transfusions for now. 3. Congestive heart failure (CHF). Acute decompensated CHF. Ejection fraction (EF) of 25%. Patient is DO NOT RESUSCITATE/DO NOT INTUBATE. He has severe tricuspid regurgitation, mild , off anticoagulation for atrial fibrillation due to active bleed. Will hold off until H and H is stable. Repeat CT shows no worsening bleeding. Strict intake and output (I and O), daily weights, fluid restriction. Lasix 40 intravenous (IV) every 6 hourly. Cardiac markers are negative. 4. Type 2 diabetes. Consistent carbohydrate diet. Finger stick blood glucose with insulin coverage. 5. Hypothyroidism. Continue Synthroid. 6. Mitral valve repair bioprosthetic per recent echo read by Dr. Rojo. No immediate need for anticoagulation. 7. Atrial fibrillation with slow ventricular rate. On Coreg 3.125 twice a day. No anticoagulation due to ongoing acute blood loss anemia. 8. Depression: patient expressed that he feels really depressed regarding his current medical illness. However, he denies SI or HI as well no AV hallucinations. Will try him on Lexapro 10 mg daily to see if this improves his affect. 9. Deep vein thrombosis (DVT) prophylaxis. Will hold off on any further anticoagulation therapy and continue with MALLORY and sequential since he does have widespread bruising and ecchymosis. DISPOSITION: The patient will continue with ongoing physical therapy. MTDD
[2017-02-03 14:00] VITALS: BP 121/51
[2017-02-03] MEDS: FUROSEMIDE 40 MG TAB PO SCH (17:00)
[2017-02-03] MEDS: ATORVASTATIN 20 MG TAB PO SCH (20:12)
[2017-02-03] MEDS: MIRTAZAPINE 15 MG TAB PO SCH (20:12)
[2017-02-03 22:00] VITALS: BP 127/46
[2017-02-04 06:00] VITALS: BP 135/63
[2017-02-04 06:10] LABS: INR 1.28
[2017-02-04 06:18] LABS: BASO % 0.2 % (0.0-1.0); EOS # 0.1 K/mm3 (0.0-0.50); EOS % 2.9 % (0.0-3.0); LARGE UNSTAINED CELL # 0.2 K/mm3 (0.0-0.4); LARGE UNSTAINED CELL % 4.1 % (0.0-4.0); LYMPH # 0.3 K/mm3 (1.5-4.5); LYMPH % 5.8 % (24.0-44.0); MEAN CORPUSCULAR HEMOGLOBIN 31.6 pg (27.0-33.0); MEAN CORPUSCULAR HGB CONC 32.4 g/dl (32.0-36.5); MEAN CORPUSCULAR VOLUME 97.4 fl (80.0-96.0); MONO # 0.4 K/mm3 (0.0-0.8); MONO % 9.1 % (0.0-5.0); NEUTROPHILS # 3.5 K/mm3 (1.8-7.7); NEUTROPHILS % 77.9 % (36.0-66.0); PLATELET COUNT, AUTOMATED 170 k/mm3 (150-450); WHITE BLOOD COUNT 4.5 K/mm3 (4.0-10.0)
[2017-02-04] MEDS: LEVOTHYROXINE 75MCG TABLET (0.075MG) PO SCH (06:19)
[2017-02-04] MEDS: SLF 3 ML SYR IV SCH ×3 (06:19→21:42)
[2017-02-04 06:22] LABS: ANION GAP 8 MEQ/L (8-16); BLOOD UREA NITROGEN 34 MG/DL (7-18); CALCIUM LEVEL 8.6 MG/DL (8.8-10.2); CARBON DIOXIDE LEVEL 35 MEQ/L (21-32); CHLORIDE LEVEL 96 MEQ/L (98-107); CREATININE FOR GFR 1.19 MG/DL (0.70-1.30); GLOMERULAR FILTRATION RATE > 60.0 (>35); GLUCOSE, FASTING 122 MG/DL (83-110); MAGNESIUM LEVEL 2.5 MG/DL (1.8-2.4); POTASSIUM SERUM 3.4 MEQ/L (3.5-5.1); SODIUM LEVEL 139 MEQ/L (136-145)
[2017-02-04] MEDS: HumaLOG INSULIN (NovoLOG) PER UNIT SC SCH ×4 (08:11→21:42)
[2017-02-04] MEDS ORDERED: POTASSIUM CHLORIDE 10 MEQ SR TABLET PO ONE (08:45)
[2017-02-04] MEDS: ESCITALOPRAM OXALATE 10 MG TAB (LEXAPRO) PO SCH (09:06)
[2017-02-04] MEDS: busPIRone 10 MG TAB PO SCH ×3 (09:06→21:40)
[2017-02-04] MEDS: ALLOPURINOL 300 MG TAB PO SCH (09:06)
[2017-02-04] MEDS: FUROSEMIDE 40 MG TAB PO SCH ×2 (09:06→17:21)
[2017-02-04] MEDS: DOCUSATE SODIUM 100 MG CAP PO SCH (09:07)
[2017-02-04] MEDS: ASCORBIC ACID 500 MG TAB PO SCH ×2 (09:07→21:41)
[2017-02-04] MEDS: MIRALAX *UNIT DOSE* 17GM PACKET PO SCH (09:07)
--- NOTE | 2017-02-04 09:10 | IPN ---
DATE: 02/04/2017 86-year-old gentleman seen at bedside. No overnight issues reported. Resting comfortably. We did start him on Lexapro yesterday to see if this would help out with his affect. He states that he does feel like he is having a better morning today than yesterday and is looking forward to working with physical therapy today. He has finished most of his breakfast. He denies chest pain, shortness of breath, nausea or vomiting. No abdominal pain. OBJECTIVE: Temperature is 97.2, pulse 63, respiratory rate 17, blood pressure 127/46, SpO2 is 96% on 2 liters. GENERAL: The patient appears to be in no acute distress. He is alert, pleasant. HEENT: Unremarkable. Eyes: Pupils equal, round, and reactive to light and accommodation. Throat clear. NECK: Supple. He does have multiple abrasions and bruising still noted on the extremities and the right side of his face and cheek. The dressing on the right scalp does appear to be clean. It is not appear to be seeping from the laceration site, as previously noted. LUNGS: Clear. HEART: Regular rate and rhythm. ABDOMEN: Soft. EXTREMITIES: No edema. No calf tenderness. LABORATORY DATA: White count 4.5, hemoglobin is a 10.7 and stable, platelets are 170,000. Sodium 139, potassium 3.4, which we will supplement, chloride 96, bicarbonate 35, anion gap 8, BUN is 34, creatinine 1.19, glucose 122. INR 1.28. ASSESSMENT AND PLAN: 1. Hypokalemia. We will replete. 2. Scalp laceration, stable and healing. 3. Acute blood loss anemia secondary to fall. This appears to be stable and has not required any further transfusions or intervention. We will continue to follow. He has refused any further transfusions at this point. His repeat CT abdomen and pelvis done previously did not show any further progression of the hematoma and does suggest that it is improving. 4. Acute exacerbation of CHF with known ejection fraction of 25%. He does appear to be doing well. We do have him on net negative Lasix, which we may consider progressing back to his normal home dose. He does appear to be better compensated. The only issues is that he still does have occasional crackle in the lower bases of lung molina and is requiring some mild supplemental oxygen. 5. Diabetes. Continue consistent carbohydrate diet. Fingersticks before food and nightly and insulin coverage. 6. Hypothyroidism. Continue Synthroid. 7. Mitral valve repair with bioprosthetic valve. No immediate need for anticoagulation. 8. Atrial fibrillation with normal ventricular rate. Continue Coreg. Again no anticoagulation due to ongoing monitoring of acute blood loss anemia. 9. Depression. Again, he denies any suicidal ideation. No audiovisual hallucinations and we will see how he does on the Lexapro that was started yesterday. 10. Deep vein thrombosis (DVT) prophylaxis. TEDemili, sequential and encouraged to ambulate with assistance. DISPOSITION: He will continue with physical therapy and we will monitor daily labs.
[2017-02-04 14:00] VITALS: BP 110/58
[2017-02-04] MEDS: MIRTAZAPINE 15 MG TAB PO SCH (21:41)
[2017-02-04] MEDS: ATORVASTATIN 20 MG TAB PO SCH (21:42)
[2017-02-04] MEDS: POTASSIUM CHLORIDE 10 MEQ SR TABLET PO SCH (21:42)
[2017-02-04 22:00] VITALS: BP 129/69
[2017-02-05] MEDS: PERCOCET 5MG/325MG TAB PO PRN (04:40)
[2017-02-05 06:00] VITALS: BP 115/55
[2017-02-05] MEDS: LEVOTHYROXINE 75MCG TABLET (0.075MG) PO SCH (06:04)
[2017-02-05] MEDS: ALLOPURINOL 300 MG TAB PO SCH (08:42)
[2017-02-05] MEDS: HumaLOG INSULIN (NovoLOG) PER UNIT SC SCH ×4 (08:42→21:32)
[2017-02-05] MEDS: ESCITALOPRAM OXALATE 10 MG TAB (LEXAPRO) PO SCH (08:42)
[2017-02-05] MEDS: ASCORBIC ACID 500 MG TAB PO SCH ×2 (08:42→21:20)
[2017-02-05] MEDS: DOCUSATE SODIUM 100 MG CAP PO SCH (08:43)
[2017-02-05] MEDS: FUROSEMIDE 40 MG TAB PO SCH (08:43)
[2017-02-05] MEDS: POTASSIUM CHLORIDE 10 MEQ SR TABLET PO SCH ×3 (08:43→21:21)
[2017-02-05] MEDS: busPIRone 10 MG TAB PO SCH ×3 (08:43→21:20)
[2017-02-05] MEDS: MIRALAX *UNIT DOSE* 17GM PACKET PO SCH (08:50)
[2017-02-05 10:51] VITALS: BP 127/57
[2017-02-05 12:54] LABS: MEAN CORPUSCULAR HGB CONC 32.2 g/dl (32.0-36.5); MEAN CORPUSCULAR VOLUME 99.4 fl (80.0-96.0); RED CELL DISTRIBUTION WIDTH 19.1 % (11.5-14.5); WHITE BLOOD COUNT 5.1 K/mm3 (4.0-10.0)
[2017-02-05 12:57] LABS: INR 1.37
[2017-02-05 13:10] LABS: CALCIUM LEVEL 8.3 MG/DL (8.8-10.2); CREATININE FOR GFR 1.32 MG/DL (0.70-1.30); GLOMERULAR FILTRATION RATE 54.7 (>35); POTASSIUM SERUM 4.4 MEQ/L (3.5-5.1)
[2017-02-05 14:00] VITALS: BP 133/49
--- NOTE | 2017-02-05 15:58 | IPN ---
DATE: 02/05/2017 This is an 86-year-old gentleman seen at bedside. He stated that he rested more comfortably last night, we recently started him on Lexapro. He denies change in appetite. No nausea, vomiting, no chest pain, no shortness of breath. He does feel that he is less depressed today. Denies any suicidal ideation or audiovisual hallucination. OBJECTIVE: Temperature 97.7, pulse 61, respiratory rate is 20, blood pressure 133/49, SpO2 is 93% on 2 liters. GENERAL: The patient appears to be in no acute distress. He is alert and oriented, pleasant. HEENT: The scalp does show good granulation of the laceration with sutures in place. He will likely need to have sutures in place for another 3 or 4 days. Otherwise throat is clear. Neck is supple. Ecchymosis appears to be improving on the right side of his face. LUNGS: Clear. HEART: Regular rate and rhythm. ABDOMEN: Soft. EXTREMITIES: No edema. No calf tenderness and the bruising and ecchymosis and abrasions on the arms do appear to be granulating well. No signs of cellulitis or infection. LABORATORY DATA: White count 5.1, hemoglobin 11.4, platelets 158,000. Sodium 138, potassium 4.4, chloride 99, bicarbonate 30, anion gap 9, BUN is 39, creatinine 1.32, glucose is 167. INR 1.33. ASSESSMENT/PLAN: 1. Hypokalemia, resolved. 2. Scalp laceration. Does appear to be healing well. We will leave the sutures in place for another 3 or 4 days. 3. Acute blood loss anemia secondary to fall. Hemoglobin and hematocrit stable. Will continue to follow. 4. Acute exacerbation of CHF. Ejection fraction was 25%. He has diuresed well. He did have a bump in his creatinine today and we will see about switching him to oral medications. 5. Diabetes. Continue with consistent carbohydrate diet. Fingersticks before food and at bedtime, insulin coverage. 6. Hypothyroidism. Continue Synthroid. 7. Mitral valve repair with bioprosthetic valve. No immediate need for anticoagulation. 8. Atrial fibrillation, normal ventricular rate. Continue Coreg. No anticoagulation due to ongoing monitoring of acute blood loss anemia and history of falls. 9. Depression. Doing well on Lexapro. No suicidal ideation. No audiovisual hallucinations. 10. DVT prophylaxis. TEDs, sequentials. Encouraged to ambulate. DISPOSITION: Continue with physical therapy. Monitor daily labs.
[2017-02-05] MEDS: FUROSEMIDE 20 MG TAB PO SCH (17:00)
[2017-02-05] MEDS: MIRTAZAPINE 15 MG TAB PO SCH (21:20)
[2017-02-05] MEDS: ATORVASTATIN 20 MG TAB PO SCH (21:20)
[2017-02-05 22:00] VITALS: BP 139/60
[2017-02-06 06:00] VITALS: BP 128/57
[2017-02-06] MEDS: LEVOTHYROXINE 75MCG TABLET (0.075MG) PO SCH (06:08)
[2017-02-06 08:44] LABS: BASO % 0.2 % (0.0-1.0); EOS % 0.9 % (0.0-3.0); LARGE UNSTAINED CELL # 0.2 K/mm3 (0.0-0.4); LARGE UNSTAINED CELL % 3.1 % (0.0-4.0); LYMPH # 0.4 K/mm3 (1.5-4.5); LYMPH % 4.6 % (24.0-44.0); MEAN CORPUSCULAR HEMOGLOBIN 31.6 pg (27.0-33.0); MEAN CORPUSCULAR HGB CONC 31.7 g/dl (32.0-36.5); MEAN CORPUSCULAR VOLUME 99.6 fl (80.0-96.0); MONO # 0.3 K/mm3 (0.0-0.8); MONO % 6.4 % (0.0-5.0); NEUTROPHILS # 4.6 K/mm3 (1.8-7.7); NEUTROPHILS % 84.9 % (36.0-66.0); PLATELET COUNT, AUTOMATED 145 k/mm3 (150-450); RED CELL DISTRIBUTION WIDTH 19.9 % (11.5-14.5); WHITE BLOOD COUNT 5.4 K/mm3 (4.0-10.0)
[2017-02-06] MEDS: MIRALAX *UNIT DOSE* 17GM PACKET PO SCH (08:45)
[2017-02-06] MEDS: DOCUSATE SODIUM 100 MG CAP PO SCH (08:45)
[2017-02-06] MEDS: HumaLOG INSULIN (NovoLOG) PER UNIT SC SCH ×4 (08:45→21:00)
[2017-02-06] MEDS: FUROSEMIDE 20 MG TAB PO SCH ×2 (08:46→17:57)
[2017-02-06] MEDS: ASCORBIC ACID 500 MG TAB PO SCH ×2 (08:46→22:26)
[2017-02-06] MEDS: ESCITALOPRAM OXALATE 10 MG TAB (LEXAPRO) PO SCH (08:46)
[2017-02-06] MEDS: busPIRone 10 MG TAB PO SCH ×3 (08:46→22:26)
[2017-02-06] MEDS: ALLOPURINOL 300 MG TAB PO SCH (08:46)
[2017-02-06] MEDS: POTASSIUM CHLORIDE 10 MEQ SR TABLET PO SCH ×3 (08:46→22:27)
[2017-02-06 09:04] LABS: CALCIUM LEVEL 8.4 MG/DL (8.8-10.2); CREATININE FOR GFR 1.33 MG/DL (0.70-1.30); GLOMERULAR FILTRATION RATE 54.3 (>35); POTASSIUM SERUM 4.7 MEQ/L (3.5-5.1)
[2017-02-06 09:34] LABS: INR 1.48
[2017-02-06 14:00] VITALS: BP 146/59
--- NOTE | 2017-02-06 15:05 | IPN ---
DATE: 02/06/2017 SUBJECTIVE: An 86-year-old gentleman resting comfortably in bed. He ate breakfast and lunch without any difficulty. Denies headache, lightheadedness, blurry vision, double vision, or tinnitus. No chest pain. No nausea or vomiting. No abdominal pain. OBJECTIVE: VITAL SIGNS: Temperature is 98.3, pulse 61, respiratory rate is 20, blood [id number]/57, SPO2 93% on two liters. GENERAL: The patient appears to be in no acute distress. He is alert and oriented. HEENT: Unremarkable. Examination of the scalp does show good granulation. Throat: Clear. LUNGS: Clear. HEART: Regular rate and rhythm. ABDOMEN: Soft. EXTREMITIES: No edema. No calf tenderness. LABORATORY DATA: White count 5.4, hemoglobin 10.7, platelets 145. Sodium 141, potassium 4.7, chloride 101, bicarbonate 30, anion gap 10, BUN is 40, creatinine 1.33, glucose is 111. ASSESSMENT AND PLAN: 1. Scalp laceration, does appear to be granulating well. We will plan on removing the sutures tomorrow. 2. Hypokalemia, resolved. 3. Acute blood loss anemia, secondary to fall. Hemoglobin and hematocrit are stable. We will continue to follow. 4. Acute exacerbation of congestive heart failure (CHF) with known ejection fraction of 25%, diuresing well. We will continue to watch his renal function. 5. Diabetes. Continue with consistent-carbohydrate diet. Fingersticks before meals and at bedtime and insulin coverage. 6. Hypothyroidism. Continue with Synthroid. 7. Mitral valve repair every bioprosthetic valve. No immediate need for anticoagulation. He does appear to be doing well and we may want to consider resuming his Coumadin tomorrow. 8. Atrial fibrillation with ventricular rate control. Continue Coreg. We will consider resuming Coumadin but want to make sure he is doing well with physical therapy as far as fall risk. 9. Depression, doing well on Lexapro. 10. Deep vein thrombosis (DVT) prophylaxis. Thromboembolic-deterrent stockings (TEDS) and sequentials currently. DISPOSITION: He will continue with physical therapy. He may be moving more towards a subacute rehabilitation. We will reevaluate this over the next few days.
[2017-02-06 15:10] VITALS: BP_SYST 127; BP_SYST 160; BP_SYST 168; BP_DIAS 68; BP_DIAS 80; BP_DIAS 89
[2017-02-06 22:00] VITALS: BP 134/71
[2017-02-06] MEDS: MIRTAZAPINE 15 MG TAB PO SCH (22:27)
[2017-02-06] MEDS: ATORVASTATIN 20 MG TAB PO SCH (22:27)
[2017-02-07 06:00] VITALS: BP 138/70
[2017-02-07] MEDS: LEVOTHYROXINE 75MCG TABLET (0.075MG) PO SCH (06:21)
[2017-02-07 06:25] LABS: BASO % 0.3 % (0.0-1.0); EOS % 0.7 % (0.0-3.0); LARGE UNSTAINED CELL # 0.2 K/mm3 (0.0-0.4); LARGE UNSTAINED CELL % 3.5 % (0.0-4.0); LYMPH # 0.5 K/mm3 (1.5-4.5); LYMPH % 4.9 % (24.0-44.0); MEAN CORPUSCULAR HEMOGLOBIN 31.2 pg (27.0-33.0); MEAN CORPUSCULAR HGB CONC 31.7 g/dl (32.0-36.5); MEAN CORPUSCULAR VOLUME 98.3 fl (80.0-96.0); MONO # 0.5 K/mm3 (0.0-0.8); MONO % 7.9 % (0.0-5.0); NEUTROPHILS # 4.7 K/mm3 (1.8-7.7); NEUTROPHILS % 82.7 % (36.0-66.0); PLATELET COUNT, AUTOMATED 142 k/mm3 (150-450); RED CELL DISTRIBUTION WIDTH 19.7 % (11.5-14.5); WHITE BLOOD COUNT 5.6 K/mm3 (4.0-10.0)
[2017-02-07 06:28] LABS: INR 1.56
[2017-02-07 06:56] LABS: CALCIUM LEVEL 8.6 MG/DL (8.8-10.2); CREATININE FOR GFR 1.51 MG/DL (0.70-1.30); GLOMERULAR FILTRATION RATE 46.9 (>35)
[2017-02-07 07:06] LABS: POTASSIUM SERUM 5.5 MEQ/L (3.5-5.1)
--- NOTE | 2017-02-07 09:18 | IPN ---
DATE: 02/07/2017 This is a pleasant 86-year-old gentleman seen at bedside. No overnight issues reported. However, this morning is complaining of having an upset stomach, some slight nausea with no vomiting. He denies any headache, lightheadedness, dizziness, blurry vision. No chest pain. No shortness of breath. OBJECTIVE: Temperature is 98.3, pulse 62, respiratory rate is 19, blood pressure (BP) 138/70, SPO2 is 94% on 2 liters. General: The patient appears to be in no acute distress. He is alert, pleasant. HEENT: Eyes are pupils equal and reactive to light and accommodation(TIFFANY). The scalp wound does appear to be granulating; however, I do not believe today would be a good day to remove the sutures since the edges do seem to not be as approximated as well as what I would like. Will leave the sutures in place for another 3 or 4 days. Throat is clear. Lungs: Clear. Heart: Regular rate and rhythm. Abdomen: Soft. Extremities: No edema. No calf tenderness. He does still have multiple stages of ecchymosis and bruising, which appear to be healing on the upper and lower extremities and on the right side of the face. LABORATORY DATA: White count is 5.6, hemoglobin 10.8 and platelets are 142,000. Sodium is 142, potassium 5.9, chloride 103, bicarb 29, anion gap 10, BUN is 42, creatinine 1.51, glucose 120, INR 1.56. ASSESSMENT/PLAN: 1. Scalp laceration granulating well, but will leave the sutures in place for another 3 or 4 days. 2. Hyperkalemia. Will hold his supplemental potassium today. 3. Elevated creatinine, mild acute kidney injury. Hold his Lasix today, but will also relax his fluid restriction to 1500 mL a day. 4. Acute exacerbation of congestive heart failure (CHF). Known ejection fraction of 25%. He has diuresed well, perhaps a little too well. Will hold the Lasix as outlined above and repeat renal profile on him later today. 5. Acute blood loss anemia secondary to fall. Hemoglobin/hematocrit (H/H) is stable. No need for transfusion. 6. Hypothyroidism. Continue Synthroid. 7. Diabetes. Continue consistent carbohydrate diet. Fingersticks before meals and at bedtime with insulin coverage. 8. Mitral valve repair by a prosthetic valve. Wanting to resume his Coumadin at some point; however, he is a risk for fall. 9. Atrial for fibrillation. His ventricular rate is controlled on Coreg. I would like to see how he is doing with therapy. 10. Depression, doing well on Lexapro. 11. Deep vein thrombosis (DVT) prophylaxis. Thromboembolic deterrent stockings (TEDS) and sequentials. DISPOSITION: Will likely need subacute rehab. He will be here likely through the weekend and will touch base with physical therapy and Patient and Family Services (PFS) as far as further discharge arrangements.
[2017-02-07] MEDS: ASCORBIC ACID 500 MG TAB PO SCH ×2 (09:21→20:46)
[2017-02-07] MEDS: ALLOPURINOL 300 MG TAB PO SCH (09:21)
[2017-02-07] MEDS: busPIRone 10 MG TAB PO SCH ×3 (09:21→20:46)
[2017-02-07] MEDS: DOCUSATE SODIUM 100 MG CAP PO SCH (09:21)
[2017-02-07] MEDS: HumaLOG INSULIN (NovoLOG) PER UNIT SC SCH ×4 (09:22→20:45)
[2017-02-07] MEDS: ESCITALOPRAM OXALATE 10 MG TAB (LEXAPRO) PO SCH (09:22)
[2017-02-07] MEDS: MIRALAX *UNIT DOSE* 17GM PACKET PO SCH (09:23)
--- NOTE | 2017-02-07 09:46 | ECGEPIP ---
Stationary ECG Study [facility] Test Date: 2017-02-06 Pat Name: DEBBIE MANDEL Department: Room: [place] [address] Gender: M [employer]: : [id number] Requested By: ALISA Astorga Order Number: [id number] Reading MD: Benito You Measurements Intervals [place] Rate: 72 P: ID: [id number] QRS: 219 QRSD: 173 T: 74 QT: 462 QTc: 506 Interpretive Statements Underlying atrial fibrillation with controlled ventricular response. Spontaneous alternating with ventricular paced complexes. Underlying left bundle branch block with prominent Q waves in leads 1, aVL and QS pattern V6; rule out prior AWMI. Paced QRS complexes with rightward axis and RBBB pattern V1 in keeping with biventricular pacing. Increased spontaneous activity from prior tracing 01/28/17 Electronically Signed On 02-07-2017 9:46:14 EDT by Benito You
[2017-02-07 12:34] LABS: ALBUMIN 2.9 GM/DL (3.2-5.2); CALCIUM LEVEL 8.8 MG/DL (8.8-10.2); CREATININE FOR GFR 1.63 MG/DL (0.70-1.30); GLOMERULAR FILTRATION RATE 42.9 (>35); PHOSPHORUS LEVEL 3.9 MG/DL (2.5-4.9)
[2017-02-07 12:38] LABS: POTASSIUM SERUM 5.2 MEQ/L (3.5-5.1)
[2017-02-07 14:00] VITALS: BP 134/74
[2017-02-07] MEDS: MIRTAZAPINE 15 MG TAB PO SCH (20:45)
[2017-02-07] MEDS: ATORVASTATIN 20 MG TAB PO SCH (20:45)
[2017-02-07 22:00] VITALS: BP 150/82
[2017-02-08 06:00] VITALS: BP 144/70
[2017-02-08] MEDS: LEVOTHYROXINE 75MCG TABLET (0.075MG) PO SCH (06:01)
[2017-02-08 06:31] LABS: BASO % 0.2 % (0.0-1.0); EOS # 0.1 K/mm3 (0.0-0.50); EOS % 1.2 % (0.0-3.0); LARGE UNSTAINED CELL # 0.2 K/mm3 (0.0-0.4); LARGE UNSTAINED CELL % 4.1 % (0.0-4.0); LYMPH # 0.3 K/mm3 (1.5-4.5); LYMPH % 4.9 % (24.0-44.0); MEAN CORPUSCULAR HEMOGLOBIN 31.8 pg (27.0-33.0); MEAN CORPUSCULAR HGB CONC 31.9 g/dl (32.0-36.5); MEAN CORPUSCULAR VOLUME 99.8 fl (80.0-96.0); MONO # 0.4 K/mm3 (0.0-0.8); MONO % 7.9 % (0.0-5.0); NEUTROPHILS # 4.1 K/mm3 (1.8-7.7); NEUTROPHILS % 81.7 % (36.0-66.0); PLATELET COUNT, AUTOMATED 146 k/mm3 (150-450); RED CELL DISTRIBUTION WIDTH 19.9 % (11.5-14.5); WHITE BLOOD COUNT 5.1 K/mm3 (4.0-10.0)
[2017-02-08 06:39] LABS: INR 1.67
[2017-02-08 06:45] LABS: CALCIUM LEVEL 8.4 MG/DL (8.8-10.2); CREATININE FOR GFR 1.52 MG/DL (0.70-1.30); GLOMERULAR FILTRATION RATE 46.5 (>35); POTASSIUM SERUM 4.9 MEQ/L (3.5-5.1)
[2017-02-08] MEDS: MIRALAX *UNIT DOSE* 17GM PACKET PO SCH (09:03)
[2017-02-08] MEDS: HumaLOG INSULIN (NovoLOG) PER UNIT SC SCH ×4 (09:03→20:50)
[2017-02-08] MEDS: ALLOPURINOL 300 MG TAB PO SCH (09:04)
[2017-02-08] MEDS: ASCORBIC ACID 500 MG TAB PO SCH ×2 (09:04→20:49)
[2017-02-08] MEDS: DOCUSATE SODIUM 100 MG CAP PO SCH (09:04)
[2017-02-08] MEDS: busPIRone 10 MG TAB PO SCH ×3 (09:04→22:45)
[2017-02-08] MEDS: ESCITALOPRAM OXALATE 10 MG TAB (LEXAPRO) PO SCH (09:04)
--- NOTE | 2017-02-08 13:03 | IPN ---
DATE: 02/08/2017 An 86-year-old gentleman seen at bedside, resting comfortably. OBJECTIVE: VITAL SIGNS: Temperature is 97.9, pulse 60, respiratory rate 18, blood pressure 144/70, SPO2 is 93% on two liters. GENERAL: The patient appears to be in no acute distress. He is alert and oriented. HEENT: Laceration appears to be granulating but does not still appear to be ready to have sutures out. Throat is clear. NECK: Supple. LUNGS: Clear. HEART: Regular rate and rhythm. ABDOMEN: Soft. EXTREMITIES: No edema. No calf tenderness. LABORATORY DATA: White count 5.1, hemoglobin 11.2, platelets are 146,000. Sodium 140, potassium 4.9, chloride 103, bicarbonate 27, anion gap 10, BUN 44, creatinine 1.52, glucose 114, INR 1.67. ASSESSMENT AND PLAN: 1. Scalp laceration, granulating well. I am going to leave the sutures in for another day or two. 2. Hyperkalemia, resolved. 3. Elevated creatinine with mild acute kidney injury. Lasix, we will hold again today. Fluid resuscitation of 1500 mL daily and repeat laboratories in the morning 4. Acute exacerbation of congestive heart failure (CHF), known ejection fraction of 25%. He appears to be euvolemic. We will continue to follow and likely resume Lasix tomorrow. 5. Acute blood loss anemia, secondary to fall. Hemoglobin and hematocrit are stable. No need for transfusion. 6. Mitral valve repair with prosthetic valve and history of atrial fibrillation. He really needs to be anticoagulated. We will start him on Coumadin. Monitor international normalized ratio (INR) and monitor for bleeding. 7. Diabetes. Consistent-carbohydrate diet. Fingersticks before meals and at bedtime with insulin coverage. 8. Depression, doing well on Lexapro. 9. Deep vein thrombosis (DVT) prophylaxis. Thromboembolic-deterrent stockings (TEDS), sequentials, resuming Coumadin. DISPOSITION: He will likely need subacute rehabilitation and be here through weekend. Appreciate physical therapy, patient and family services (PFS) assistance with discharge arrangements.
[2017-02-08 14:00] VITALS: BP 127/76
[2017-02-08] MEDS: ATORVASTATIN 20 MG TAB PO SCH (20:49)
[2017-02-08] MEDS: MIRTAZAPINE 15 MG TAB PO SCH (20:49)
[2017-02-08 22:00] VITALS: BP 146/67
[2017-02-09 06:00] VITALS: BP 135/65
[2017-02-09] MEDS: LEVOTHYROXINE 75MCG TABLET (0.075MG) PO SCH (06:04)
[2017-02-09 06:19] LABS: BASO % 0.1 % (0.0-1.0); EOS % 0.8 % (0.0-3.0); LARGE UNSTAINED CELL # 0.1 K/mm3 (0.0-0.4); LARGE UNSTAINED CELL % 2.7 % (0.0-4.0); LYMPH # 0.3 K/mm3 (1.5-4.5); LYMPH % 4.1 % (24.0-44.0); MEAN CORPUSCULAR HEMOGLOBIN 30.7 pg (27.0-33.0); MEAN CORPUSCULAR HGB CONC 30.8 g/dl (32.0-36.5); MEAN CORPUSCULAR VOLUME 99.7 fl (80.0-96.0); MONO # 0.4 K/mm3 (0.0-0.8); MONO % 6.8 % (0.0-5.0); NEUTROPHILS # 4.5 K/mm3 (1.8-7.7); NEUTROPHILS % 85.5 % (36.0-66.0); PLATELET COUNT, AUTOMATED 143 k/mm3 (150-450); RED CELL DISTRIBUTION WIDTH 20.2 % (11.5-14.5); WHITE BLOOD COUNT 5.2 K/mm3 (4.0-10.0)
[2017-02-09 06:23] LABS: INR 1.5
[2017-02-09 06:36] LABS: CALCIUM LEVEL 8.5 MG/DL (8.8-10.2); CREATININE FOR GFR 1.55 MG/DL (0.70-1.30); GLOMERULAR FILTRATION RATE 45.5 (>35); POTASSIUM SERUM 4.4 MEQ/L (3.5-5.1)
[2017-02-09] MEDS: ALLOPURINOL 300 MG TAB PO SCH (08:28)
[2017-02-09] MEDS: MIRALAX *UNIT DOSE* 17GM PACKET PO SCH (08:28)
[2017-02-09] MEDS: HumaLOG INSULIN (NovoLOG) PER UNIT SC SCH ×4 (08:28→21:00)
[2017-02-09] MEDS: ESCITALOPRAM OXALATE 10 MG TAB (LEXAPRO) PO SCH (08:28)
[2017-02-09] MEDS: ASCORBIC ACID 500 MG TAB PO SCH ×2 (08:28→20:34)
[2017-02-09] MEDS: busPIRone 10 MG TAB PO SCH ×3 (08:28→20:34)
[2017-02-09] MEDS: DOCUSATE SODIUM 100 MG CAP PO SCH (08:28)
[2017-02-09] MEDS ORDERED: WARFARIN SOD 2 MG TAB PO SCH (09:00)
--- NOTE | 2017-02-09 10:42 | IPN ---
DATE: 02/09/2017 An 86-year-old gentleman seen at the bedside resting comfortably. He denies any overnight issues. No chest pain, shortness breath. No headache, lightheadedness, dizziness or blurry vision. He states that occasionally he does get some dyspnea on exertion. OBJECTIVE: Temperature is 98.1, pulse 62, respiratory rate 18, blood pressure 135/65, SPO2 96% on 2 liters. General: The patient appears to be in no acute distress. He is alert and oriented. HEENT: Head is atraumatic, normocephalic. Eyes: Pupils equal and reactive to light and accommodation, throat clear. Lungs: Intermittent crackles. Heart: Regular rate and rhythm. Abdomen: Soft. Extremities: 1+ pitting edema just above the ankles bilaterally. No calf tenderness. LABORATORY DATA: White count 5.2, hemoglobin 11.1, platelets are 143,000, sodium 138, potassium 4.4, chloride 101, bicarbonate 29, anion gap 8, BUN is 42, creatinine 1.55, glucose is 113. INR 1.5. ASSESSMENT AND PLAN: 1. Scalp laceration, granulating well. Leave sutures in another 24-48 hours, then suture removal likely this week. 2. Hyperkalemia, resolved. 3. Slight increase in creatinine with lower extremity edema and what appears to be congestive heart failure (CHF) exacerbation. I am going to go ahead and give him 40 mg of Lasix once a day intravenously (IV) and will see what his labs look like tomorrow. I do suspect he needs to diurese better. 4. Exacerbation of congestive heart failure with ejection fraction 25%. He appears to be less euvolemic today; again, we will see if we can diurese him to see how his kidney function is doing tomorrow. 5. Acute blood loss anemia secondary to fall. Hemoglobin and hematocrit stable. 6. Mitral valve repair with prosthetic heart valve. In the setting of atrial fibrillation, will resume his Coumadin and goal INR will be between 2 and 3. 7. Diabetes. Continue consistent carbohydrate diet. Fingersticks before food and nightly and sliding scale coverage. 8. Depression. Continue Lexapro 9. Deep vein thrombosis (DVT) prophylaxis. He is resuming Coumadin. Continue with thromboembolism deterrents (TEDs) and sequentials. DISPOSITION: Likely need subacute rehab. Appreciate physical therapy and patient and family services (PFS) assistance with discharge arrangements.
[2017-02-09 14:00] VITALS: BP 97/56
[2017-02-09] MEDS: WARFARIN SOD 2 MG TAB PO SCH (16:59)
[2017-02-09] MEDS ORDERED: WARFARIN SOD 2 MG TAB PO ONE (17:00)
[2017-02-09] MEDS: ATORVASTATIN 20 MG TAB PO SCH (20:34)
[2017-02-09] MEDS: MIRTAZAPINE 15 MG TAB PO SCH (20:34)
[2017-02-09 22:00] VITALS: BP 139/70
[2017-02-10] MEDS: LEVOTHYROXINE 75MCG TABLET (0.075MG) PO SCH (05:49)
[2017-02-10 05:51] LABS: BASO % 0.2 % (0.0-1.0); EOS # 0.1 K/mm3 (0.0-0.50); EOS % 1.2 % (0.0-3.0); LARGE UNSTAINED CELL # 0.2 K/mm3 (0.0-0.4); LARGE UNSTAINED CELL % 2.8 % (0.0-4.0); LYMPH # 0.4 K/mm3 (1.5-4.5); LYMPH % 4.5 % (24.0-44.0); MEAN CORPUSCULAR HEMOGLOBIN 31.2 pg (27.0-33.0); MEAN CORPUSCULAR HGB CONC 31.3 g/dl (32.0-36.5); MEAN CORPUSCULAR VOLUME 99.8 fl (80.0-96.0); MONO # 0.4 K/mm3 (0.0-0.8); MONO % 7.7 % (0.0-5.0); NEUTROPHILS # 4.5 K/mm3 (1.8-7.7); NEUTROPHILS % 83.7 % (36.0-66.0); PLATELET COUNT, AUTOMATED 140 k/mm3 (150-450); RED CELL DISTRIBUTION WIDTH 20.2 % (11.5-14.5); WHITE BLOOD COUNT 5.4 K/mm3 (4.0-10.0)
[2017-02-10 06:00] VITALS: BP 129/66
[2017-02-10 06:01] LABS: INR 1.5
[2017-02-10 06:03] LABS: CALCIUM LEVEL 8.4 MG/DL (8.8-10.2); CREATININE FOR GFR 1.49 MG/DL (0.70-1.30); GLOMERULAR FILTRATION RATE 47.6 (>35); POTASSIUM SERUM 4.4 MEQ/L (3.5-5.1)
[2017-02-10] MEDS: MIRALAX *UNIT DOSE* 17GM PACKET PO SCH (08:31)
[2017-02-10] MEDS: busPIRone 10 MG TAB PO SCH ×3 (08:31→20:35)
[2017-02-10] MEDS: HumaLOG INSULIN (NovoLOG) PER UNIT SC SCH ×4 (08:31→21:32)
[2017-02-10] MEDS: DOCUSATE SODIUM 100 MG CAP PO SCH (08:31)
[2017-02-10] MEDS: ALLOPURINOL 300 MG TAB PO SCH (08:32)
[2017-02-10] MEDS: ASCORBIC ACID 500 MG TAB PO SCH ×2 (08:32→20:35)
[2017-02-10] MEDS: ESCITALOPRAM OXALATE 10 MG TAB (LEXAPRO) PO SCH (08:32)
[2017-02-10] MEDS: FUROSEMIDE 80 MG TAB PO SCH ×2 (10:10→17:11)
[2017-02-10 11:20] VITALS: BP 143/73
[2017-02-10 14:00] VITALS: BP 124/80
--- NOTE | 2017-02-10 16:18 | IPN ---
DATE: 02/10/2017 SUBJECTIVE: The patient tells me that he feels tired and frustrated that he is still in the hospital but he has no specific complaints. He is oriented to person. He knows that he is in the hospital. He knows that he is in [place]. However, he does not know the year. He denies any other complaints. OBJECTIVE: VITAL SIGNS: Temperature 97.1, pulse 60, respiratory rate 18, blood pressure 124/80, oxygen saturation 97% on two liters. GENERAL: He is a frail, elderly, man sleeping peacefully in bed but easily arousable to verbal stimuli. He does not appear to be in any acute distress. HEENT: A well-healed laceration on the right frontal scalp region. Sutures are intact and surrounded by some dried blood. He has moist mucous membranes. Some elevation in his central venous pressure (CVP). CARDIOVASCULAR: S1, S2, irregularly irregular. RESPIRATORY: Fairly clear, some bibasilar rales. ABDOMEN: Benign. EXTREMITIES: 1+ edema bilaterally. LABORATORY STUDIES: WBC 5.9, hemoglobin 11, platelet count 140. Chemistry panel: Sodium 140, potassium 4.4, chloride 101, bicarbonate 30, BUN 40, creatinine 1.4, baseline appears to be approximately 1.1. No new imaging. ASSESSMENT AND PLAN: This is an 86-year-old man status post mechanical fall with acute blood loss anemia and decompensated congestive heart failure. PROBLEM LIST: 1. Mechanical fall. He is status post a laceration which is granulating well and the sutures remained in place. I did examine him this morning. I will leave his dressing open to air. He does have some skin abrasions. The dressings are clean, dry, and intact. 2. Acute blood loss anemia, likely related to traumatic fall and bleeding associated with it. He did receive four units of packed red blood cells (PRBCs) during his stay here. His hemoglobin and hematocrit have remained fairly stable for the last several days. 3. Hyperkalemia, resolved. 4. Decompensated congestive heart failure. He did have an echocardiogram completed on 01/29/2017 which revealed an ejection fraction (EF) of 25%, eccentric and concentric left ventricular hypertrophy (LVH), paradoxical septal motion, akinesis of the left ventricular apex as well as severe elevation of the right ventricular systolic pressure, overall right ventricular (RV) systolic function suggestive of volume and pressure overload of the right ventricle, and inferior vena cava plethora. It also demonstrated an implantable cardioverter defibrillator (ICD). The patient this morning was not on any diuretic. I will restart his home diuretic of Lasix 120 mg by mouth twice a day and continue to monitor his renal function. It does appear to be very slowly returning to normal. If he continues to improve to normal on his home diuretic dose, I suspect that he could likely return to [facility] as early as tomorrow. 5. Acute kidney injury, possibly cardiorenal syndrome related to congestive heart failure. We are diuresing him and we will monitor his kidney function as outlined above. Also in relation to congestive heart failure, the patient has been restarted on a diuretic. However, curiously, he is not on an angiotensin-converting enzyme (ROSALIO) inhibitor, beta kelly. He does have an aspirin allergy. We will look into resuming upon discharge. 6. Mitral valve repair. He is status post a prosthetic repair. In the setting of atrial fibrillation, the goal international normalized ratio (INR) is 2-3. He has been restarted on his Coumadin and his INR is 1.5 today. 7. Depression. Continue with Lexapro. 8. Gout. Continue with allopurinol. 9. Chronic constipation. Continue with bowel regimen. 10. Hypothyroidism. Continue with Synthroid. 11. Dyslipidemia. Continue with Lipitor. 12. Anxiety and depression. Continue with Remeron, buspirone. 13. Deep vein thrombosis (DVT) prophylaxis. The patient is on Coumadin. DISPOSITION: The patient may likely be able to return to [facility] within the next 24-48 hours.
[2017-02-10] MEDS: WARFARIN SOD 2 MG TAB PO SCH (17:10)
--- NOTE | 2017-02-10 18:07 | REP ---
Clinical: Trauma. Fall. Technique: Real time edwards scale ultrasound examination using curved array transducer. Findings: The bilateral kidneys are relatively normal in contour, size, echogenicity and reniform shape without hydronephrosis, nephrolithiasis, or mass lesion. No perinephric fluid collection identified. The right kidney measures 9.8 x 6.0 x 5.5 cm and includes 2.1 cm lower pole cyst. Left kidney measures 9.6 x 5.2 x 5.0 cm and includes 3.9 cm upper pole cyst. The bladder is unremarkable and currently measures 9.8 x 6.6 x 4.2 cm. A small to moderate amount of ascites noted. Anterior abdominal wall hematoma measures 6.1 x 6.0 x 3.0 cm. Impression: 1. Kidneys without hydronephrosis or perinephric stranding include solitary cysts as described above. 2. Anterior abdominal wall hematoma similar to prior CT dated 02/01/2017. 3. Moderate ascites. Signed by Kal Farr MD 02/10/2017 05:58 P
[2017-02-10] MEDS: MIRTAZAPINE 15 MG TAB PO SCH (20:34)
[2017-02-10] MEDS: ATORVASTATIN 20 MG TAB PO SCH (20:34)
--- NOTE | 2017-02-10 21:44 | ECGEPIP ---
Stationary ECG Study [facility] Test Date: 2017-02-10 Pat Name: ZANE MANDEL Department: Room: J9553-14 Gender: M [employer]er: MICHAEL : 1930 Requested By: SHANTEL JACINTO Order Number: [id number] Reading MD: Zane Ascencio Measurements Intervals [place] Rate: 69 P: CT: 0 QRS: 173 QRSD: 181 T: -15 QT: 435 QTc: 468 Interpretive Statements Atrial fibrillation PVCs but otherwise paced ventricular complexes No spontaneous ventricular beats, otherwise no significant change when compared to prior tracing of 02/06/2017 Electronically Signed On 02-10-2017 21:44:45 EDT by Zane Ascencio
[2017-02-10 22:00] VITALS: BP 123/75
[2017-02-11] MEDS: LEVOTHYROXINE 75MCG TABLET (0.075MG) PO SCH (05:34)
[2017-02-11 06:00] VITALS: BP 106/57
[2017-02-11 07:40] LABS: BASO % 0.1 % (0.0-1.0); EOS # 0.2 K/mm3 (0.0-0.50); EOS % 3.7 % (0.0-3.0); LARGE UNSTAINED CELL # 0.2 K/mm3 (0.0-0.4); LARGE UNSTAINED CELL % 4.2 % (0.0-4.0); LYMPH # 0.2 K/mm3 (1.5-4.5); LYMPH % 4.7 % (24.0-44.0); MEAN CORPUSCULAR HEMOGLOBIN 31.1 pg (27.0-33.0); MEAN CORPUSCULAR HGB CONC 31.6 g/dl (32.0-36.5); MEAN CORPUSCULAR VOLUME 98.4 fl (80.0-96.0); MONO # 0.5 K/mm3 (0.0-0.8); MONO % 10.4 % (0.0-5.0); NEUTROPHILS # 3.4 K/mm3 (1.8-7.7); NEUTROPHILS % 76.9 % (36.0-66.0); PLATELET COUNT, AUTOMATED 132 k/mm3 (150-450); RED CELL DISTRIBUTION WIDTH 19.6 % (11.5-14.5); WHITE BLOOD COUNT 4.5 K/mm3 (4.0-10.0)
[2017-02-11 07:43] LABS: INR 1.56
[2017-02-11 08:02] LABS: CALCIUM LEVEL 8.2 MG/DL (8.8-10.2); CREATININE FOR GFR 1.24 MG/DL (0.70-1.30); GLOMERULAR FILTRATION RATE 58.8 (>35); POTASSIUM SERUM 3.2 MEQ/L (3.5-5.1)
[2017-02-11] MEDS: HumaLOG INSULIN (NovoLOG) PER UNIT SC SCH (08:52)
[2017-02-11] MEDS: DOCUSATE SODIUM 100 MG CAP PO SCH (08:52)
[2017-02-11] MEDS: MIRALAX *UNIT DOSE* 17GM PACKET PO SCH (08:53)
[2017-02-11] MEDS: ASCORBIC ACID 500 MG TAB PO SCH (08:54)
[2017-02-11] MEDS: FUROSEMIDE 80 MG TAB PO SCH (08:54)
[2017-02-11] MEDS: ESCITALOPRAM OXALATE 10 MG TAB (LEXAPRO) PO SCH (08:54)
[2017-02-11] MEDS: ALLOPURINOL 300 MG TAB PO SCH (08:54)
[2017-02-11] MEDS: busPIRone 10 MG TAB PO SCH (08:54)
[2017-02-11] MEDS ORDERED: POTASSIUM CHLORIDE 10 MEQ SR TABLET PO ONE (09:00)
--- NOTE | 2017-02-11 21:18 | DSES ---
DATE OF ADMISSION: 01/28/2017 DATE OF DISCHARGE: 02/11/2017 DISCHARGE DIAGNOSES: 1. Mechanical fall. 2. Acute blood loss anemia. 3. Hyperkalemia. 4. Decompensated congestive heart failure. 5. Acute kidney injury. 6. History of mitral valve repair. 7. Depression. 8. Gout. 9. Chronic constipation. 10. Hypothyroidism. 11. Dyslipidemia. 12. Anxiety. SECONDARY DIAGNOSES: Rectus wall hematoma. CONSULTATIONS: Joshua Pineda Jr., MD of general surgery. HOSPITAL COURSE: The patient is an 86-year-old man who was admitted after having a mechanical fall on 01/28/2017. He did have a therapeutic INR at that time which was promptly reversed. He had a scalp laceration and abdominal hematoma which gradually resolved. He was seen in consultation by Dr. Joshua Pineda of general surgery. He was maintained on the inpatient medical service. During his stay, he did receive fresh frozen plasma (FFP) to reverse his elevated INR and he also did receive a total of four units of packed red blood cells (PRBCs). Following blood transfusions, he was briefly fluid overloaded and did become in a state of congestive heart failure. The patient was diuresed to improve his volume status. Throughout his stay, he did have some acute kidney injury which further complicated his stay. This did resolve with diuresis. At the present time, the patient is doing quite well. He is awake, alert, oriented times three. He has no complaints, no shortness of breath, and is eager to return home to [facility] where he lives. OBJECTIVE: VITAL SIGNS: Temperature 98.7, pulse 60, respiratory rate 18, blood pressure 106/57, oxygen saturation 98% on two liters nasal cannula. GENERAL: He is a frail, elderly, man, laying in bed. He does not appear to be in any acute distress whatsoever. HEENT: He has a well-healing laceration on his right forehead with sutures in place. He has moist mucous membranes. Ecchymoses of his right maxillary region. Poor dentition. No elevation in his central venous pressure. CARDIOVASCULAR EXAM: S1, S2, irregularly irregular. RESPIRATORY EXAM: Clear, no rales. ABDOMINAL EXAM: Benign. EXTREMITIES: No clubbing, cyanosis, or edema. LABORATORY STUDIES: WBC 4.5, hemoglobin 10.9, platelet count 132. Chemistry panel: Sodium 142, potassium 3.2, repleted, chloride 100, bicarbonate 30, BUN 33, creatinine 1.2. INR is 1.5 today. IMAGING: The patient had a renal ultrasound that did not reveal any hydronephrosis and a stable abdominal wall hematoma. He had a chest x-ray on 02/02/2017, that revealed some vascular congestion, but improved interstitial edema. He had a CT of the abdomen and pelvis on 02/01/2017, that revealed no interval change from the previous one completed on 01/28/2017. There was a stable hematoma in the abdominal wall that at that point measured at 7 x 3.8 cm, but did have large bilateral effusions with congestive heart failure (CHF) at that point. ASSESSMENT AND PLAN: This is an 86-year-old man status post mechanical fall with acute blood loss anemia and decompensated congestive heart failure with acute kidney injury. 1. Mechanical fall status post laceration which is granulating well. Sutures remain in place. At this point, he can leave the dressing open to air. He does have some mild skin abrasions on his upper extremities with dressings that are clean, dry, and intact. He should have the sutures removed when following up with his primary care provider (PCP) within the next week. 2. Acute blood loss anemia, likely related to traumatic fall and abdominal wall hematoma. His INR was reversed with fresh frozen plasma (FFP) at the time of admission and it was stabilized and he has been resumed on Coumadin. Followup his INR as previously done for his previous goal prior to this hospitalization. The patient was seen by general surgery during his stay without any operative interventions. 3. Hyperkalemia, resolved. 4. Decompensated systolic congestive heart failure with an ejection fraction (EF) of 25%. He did have an echocardiogram completed which, at the time, did reveal inferior vena cava plethora. He does have an implantable cardioverter defibrillator (ICD) in place. He has been restarted on his diuretics of 120 mg of Lasix by mouth twice a day. We monitored his daily weights. We will restart his beta kelly at this time upon discharge, he is on low dose Coreg. Should he tolerate and his blood pressure allow, would consider initiating patient in angiotensin-converting enzyme (ROSALIO) inhibitor as well and even Aldactone if he could tolerate it given his severe systolic dysfunction. 5. Acute kidney injury. May have had some cardiorenal syndrome. While he was decompensated, his renal function did worsen and he did improve with diuresis. He is not on an angiotensin converting enzyme (ROSALIO) inhibitor at this time. 6. History of a mitral valve repair, stable. 7. Atrial fibrillation. His goal INR is 2-3. He has been restarted on his Coumadin. He has been restarted on his beta kelly. He did not require any rate controlling agents while here. 8. Depression. Continue with Lexapro. 9. Gout. Continue with allopurinol. 10. Chronic constipation. Continue with his bowel regimen. 11. Hypothyroidism. Continue with Synthroid. 12. Dyslipidemia. He is continued on Lipitor. 13. Anxiety and depression. He is on Remeron and buspirone. 14. Deep venous thrombosis (DVT) prophylaxis. He is on Coumadin. DISPOSITION: The patient is being discharged back to [facility]. His activity and diet are as prior to admission. He is to return to the emergency room (ER) if his symptoms worsen. He is to followup with his primary care provider (PCP) within 7 days. MEDICATIONS AT THE TIME OF DISCHARGE: - acidophilus two capsules daily - allopurinol 300 mg daily - vitamin C 500 mg twice a day - torsemide 20 mg nightly - bisacodyl 10 mg rectally daily as needed for constipation - buspirone 20 mg three times a day - carvedilol 3.125 mg twice a day - Colace 100 mg daily - Ensure Plus liquid by mouth twice a day - Lasix 120 mg twice a day - Synthroid 75 mcg daily - Tradjenta 5 mg daily - milk of magnesia 30 mL every evening as needed for constipation - mirtazapine 30 mg nightly - Nitrostat 0.4 mg sublingually every 5 minutes as needed for chest pain - MiraLAX 17 grams packet daily - potassium chloride 20 mEq three times a day - Fleet enema daily rectally as needed for constipation - Coumadin 2 mg daily Greater than 30 minutes spent organizing disposition.
== END 2017-02-11 11:20 | DRG 604 ==
LOC: M ED 07:25 → EDBD 07:25 → M ED INP 19:42 → M PCU 20:47 → M MSPAV 01-31 17:54
PROVIDERS: ADMIT Hospitalist; ATTEND Internal Medicine
PROC: 0HQ0XZZ Repair Scalp Skin, External Approach (ICD-10-PCS; principal; 2017-01-28)
PROC: 30253N1 (ICD-10-PCS; 2017-01-28)
PROC: 30253K1 (ICD-10-PCS; 2017-01-28)
DX: S30.1XXA Contusion of abdominal wall, initial encounter (principal); I50.23 Acute on chronic systolic (congestive) heart failure; D62 Acute posthemorrhagic anemia; N17.9 Acute kidney failure, unspecified; D68.32 Hemorrhagic disorder due to extrinsic circulating anticoagulants; I11.0 Hypertensive heart disease with heart failure; S01.01XA Laceration without foreign body of scalp, initial encounter; W06.XXXA Fall from bed, initial encounter; Y92.122 Bedroom in nursing home as the place of occurrence of the external cause; Z66 Do not resuscitate; I25.10 Atherosclerotic heart disease of native coronary artery without angina pectoris; I25.2 Old myocardial infarction; I48.91 Unspecified atrial fibrillation; H54.8 Legal blindness, as defined in USA; E78.5 Hyperlipidemia, unspecified; M10.9 Gout, unspecified; F32.9 Major depressive disorder, single episode, unspecified; K59.00 Constipation, unspecified; J44.9 Chronic obstructive pulmonary disease, unspecified; K21.9 Gastro-esophageal reflux disease without esophagitis; E11.9 Type 2 diabetes mellitus without complications; E03.9 Hypothyroidism, unspecified; E87.6 Hypokalemia; E87.5 Hyperkalemia; Z95.2 Presence of prosthetic heart valve; Z85.46 Personal history of malignant neoplasm of prostate; Z85.828 Personal history of other malignant neoplasm of skin; Z87.891 Personal history of nicotine dependence; Z79.01 Long term (current) use of anticoagulants; Z99.81 Dependence on supplemental oxygen; Z95.810 Presence of automatic (implantable) cardiac defibrillator; Z95.1 Presence of aortocoronary bypass graft; Z86.711 Personal history of pulmonary embolism; Z79.899 Other long term (current) drug therapy; Z88.6 Allergy status to analgesic agent; Y99.8 Other external cause status